=== PATIENT | male | born 1975 | race Asian ===

== ENCOUNTER 2025-05-17 09:41 | Outpatient (AMB) | payer OTHER, SELFPAY ==
--- NOTE | 2025-05-17 09:57 | A.OFFPC_ITS ---
Vital Signs 05/17/25 10:06 Height 5 ft 10 in Weight 186 lb 6 oz BMI 26.7 BP 130/70 Blood Pressure Location Lt brachial Position Sitting Respiration 16 Pulse 64 Pulse Source Pulse Oximeter Temp 98.2 F Temp Source Oral Pulse Oximetry (%) 100 Oxygen Delivery Method Room Air Intake Visit Reasons: TRANSLATOR // Requesting a PE Intake Note: patient is scheduled to establish care with pcp Exercise Science Instructor Required: No Allergies No Known Allergies Allergy (Verified 05/17/25 09:58) Medication List - Last Reconciled 05/17/25 by Ibrahima Gil MD No Known Home Meds Tobacco use date assessed: 05/17/25 Dental Screening Dental Screen Date: 05/17/25 Did you have a dental visit in the last 12 months?: Yes Did you have a dental problem in the last 6 months where you did not have access to dental care?: No Was dental information given to patient?: Patient has dentist HPI TRANSLATOR // Requesting a PE HPI Details New Patient? ?? Prior PCP:? [facility] Last office visit/CPE:? > 1 yr Acute issue(s):? Establish ?? PMHx:? Spherocytosis - Folate, SurgHx:? None FHx: Mom: PreDM. Brother: Polycystic Kidney Disease. Dad: Healthy. Aunt: Breast CA? SocHx:? Nonsmoker. EtOH: 1 drink per night or less. No Drugs HPI Comments History of Present Illness Details Documentation assistance for Ibrahima Gil MD, was provided by Kennedy Benjamin,? Mandolin Repair Person on 05/17/2025 at 10:13 AM EST. I, Dr. Gil, have read, observed, and verified documentation. ? PFSH Medical History (Updated 05/17/25 @ 10:26 by Kennedy Benjamin) Spherocytosis Social History Housing: House Patient Tobacco Use Status: Former Tobacco user e-Cigarette/Vaping Use: Never Used Second Hand Smoke Exposure: No service: No Current occupational status: employed Current occupation: Current occupational exposures/hazards: No Cognitive needs: No Hearing needs: No Vision needs: Yes Questionnaire PHQ-9 Over the last 2 weeks, how often have you been bothered by any of the following problems? 1. Little interest or pleasure in doing things: not at all 2. Feeling down, depressed, or hopeless: not at all 3. Trouble falling or staying asleep, or sleeping too much: not at all 4. Feeling tired or having little energy: not at all 5. Poor appetite or overeating: not at all 6. Feeling bad about yourself - or that you are a failure or have let yourself or your family down: not at all 7. Trouble concentrating on things, such as reading the newspaper or watching television: not at all 8. Moving or speaking so slowly that other people could have noticed. Or the opposite - being so fidgety or restless that you have been moving around a lot more than usual: not at all 9. Thoughts that you would be better off or of hurting yourself in some way: not at all Total score: 0 Depression Screening Interpretation: Negative Depression Screening Done: Yes 94994 - PHQ-9 Billing: Yes Source: Developed by Drs. Phu Michael, Maru Spencer, Charanjit Lubin and colleagues, with an educational loretta from [employer]. Thrive Questionnaire Date Thrive assessed: 05/17/25 I am a: Patient What is your living situation today?: I have a steady place to live Within the past 12 months, did the food you bought not last and you didn't have the money to get more?: Never true Within the past 12 months, did you worry whether your food would run out before you got money to buy more?: Never true Do you have trouble paying for medicines?: No Do you have trouble getting transportation to medical appointments?: No Do you have trouble paying your heating and electricity bill?: No Do you have trouble taking care of your child, family member or friend?: No Do you have trouble with day-to-day activities such as bathing, preparing meals, shopping, managing finances, etc.?: No Are you currently unemployed and looking for a job?: No Are you interested in more education?: No Please select the resources that you would like help with: None Currently or been in a relationship where the following occur: No concerns reported THRIVE Score: 0 AUDIT C Alcohol Use Questionnaire (AUDIT-C) 1. How often do you have a drink containing alcohol?: 2-4 times a month 2. How many drinks containing alcohol do you have on a typical day when you are drinking?: 1 or 2 3. How often do you have six or more drinks on one occasion?: Never Total Score: 2 Score Reviewed/Action Taken: Yes RUPALI-7 AMB Questionnaire RUPALI-7 Date RUPALI - 7 assessed: 05/17/25 Feeling nervous, anxious, or on edge: 0 = Not at all Not being able to stop or control worryin = Not at all Worrying too much about different things: 0 = Not at all Trouble relaxin = Not at all Being so restless that it is hard to sit still: 0 = Not at all Becoming easily annoyed or irritable: 0 = Not at all Feeling afraid as if something awful might happen: 0 = Not at all Total RUPALI-7 score (0-4 normal; 5-9 mild; 10-14 moderate; 15-21 severe): 0 Source: Developed by Drs. Phu Michael, Maru Spencer, Charanjit Lubin and colleagues, with an educational loretta from [employer]. RUPALI-7 Assessment Billing RUPALI-7 Assessment Tool: RUPALI-7 Assessment 43139 Review of Systems Const Denies chills, Denies fatigue, Denies fever(s), Denies headache(s) and Denies weakness Eyes Denies change in vision ENT Denies dizziness and Denies headache(s) Card Denies chest pain, Denies lightheadedness, Denies dyspnea and Denies other (Palpitations) Resp Denies cough, Denies dyspnea, Denies wheezing and Denies other ( shortness of breath) GI Denies abdominal pain, Denies melena, Denies hematochezia, Denies change in bowel habits, Denies dyspepsia and Denies nausea Denies hematuria and Denies dysuria Musc Denies numbness and Denies tingling Skin/Breast Denies rash, Denies unusual bruising and Denies wounds Neuro Denies dizziness, Denies headache(s), Denies numbness, Denies Sensory deficit (Neuro), Denies tingling, Denies paresthesias and Denies weakness Psych Denies anxiety and Denies depression Endo Denies fatigue Anthony/Lymph Denies easy bleeding and Denies easy bruising Aller/Immun Denies wheezing Physical exam (Primary Care) Vital Signs: Last Vital Signs Temp 98.2 F 05/17/25 10:06 Pulse 64 05/17/25 10:06 Resp 16 05/17/25 10:06 BP 130/70 05/17/25 10:06 Pulse Ox 100 05/17/25 10:06 Oxygen Delivery Method Room Air 05/17/25 10:06 BMI result Body Mass Index 26.7 Tobacco/Smoking Status: Tobacco use Status Tobacco use date assessed 05/17/25 05/17/25 10:09 Patient Tobacco Use Status Former Tobacco user 05/17/25 10:09 e-Cigarette/Vaping Use Never Used 05/17/25 10:09 PHQ-9: PHQ-9 Score PHQ-9: Total score 0 05/17/25 10:12 Depression Screening Interpretation: Negative Thrive Assessment: Date of Thrive Assessment Date Thrive assessed 05/17/25 05/17/25 10:09 Currently or been in a relationship where the following occur: No concerns reported Const General: no acute distress and well developed Nutritional Appearance: well nourished Orientation/consciousness: patient oriented x3 HENMT Head: Yes normocephalic and Yes atraumatic Ears: hearing grossly normal bilaterally and TM's normal bilaterally General nose exam: Normal external nose present and Normal nares present Mouth: Normal oral and palatal mucosa present and moist mucous membranes Teeth and gingiva: dentition normal Throat: Yes posterior oropharynx normal Eyes General: appearance normal, both eyes and all related structures Pupils: Equal, round and reactive pupils present EOM: EOMs intact bilaterally Neck Neck: Yes normal visual inspection, Yes no lymphadenopathy and Yes trachea midline Thyroid: Thyroid normal Carotids: no bruits Lymphatic: no lymphadenopathy noted Chest Chest palpation & inspection: normal inspection of the chest Resp Effort & Inspection: normal respiratory effort Auscultation: clear to auscultation bilaterally Cardio Rate: regular rate Rhythm: regular rhythm Heart sounds: S1 normal heart sound present, S2 normal heart sound present, no gallops, no murmurs and no rubs Bruits: no abdominal aortic bruits and no carotid bruits GI Palpation (GI): No Abdominal aortic bruit present, Soft to palpation, nontender, No hepatosplenomegaly present and No Rebound tenderness present Auscultation: normal bowel sounds General: Yes no CVA tenderness Back/Spine/Pelvis Back: no CVA tenderness Cervical Spine: cervical ROM normal and No Cervical spine tenderness Thoracic/Lumbar Spine: thoraco-lumbar ROM normal, No pain with thoraco-lumbar ROM, No thoracic spinal tenderness and No lumbar spinal tenderness Skin Lesions: no lesions Rashes: no rashes Trauma: no lacerations or abrasions Wounds: no wounds Nails: normal Neuro General: patient oriented x3 and gait normal Cranial nerves: Yes Equal, round and reactive pupils present Cognition (Neuro): normal cognition Gait exam (Neuro): Normal gait present Motor exam (neuro): 5/5 motor strength present throughout Sensory Exam: No Sensory deficit (Neuro) Deep tendon reflexes (DTR's): Right patellar reflex intensity grade: 2+ and Left patellar reflex intensity grade: 2+ Extrem General: Yes normal to inspection and No edema Psych Appearance: grossly normal Affect: normal affect Attitude: cooperative Thought process: Normal thought process present Coding Level of Care Code New Pt Level 3 (01923) New Pt Prev Care 40-64y(71363) Diagnoses Adult general medical exam Z00.00 Spherocytosis D58.0 Screening for colon cancer Z12.11 Screening for prostate cancer Z12.5 Hearing loss H91.90 Additional Codes RUPALI-7 Assessment Billing - RUPALI-7 Assessment Tool: RUPALI-7 Assessment 48505 ([id number]) PHQ-9 - 49654 - PHQ-9 Billing: Yes ([id number]) Assessment & Plan Assessment & Plan (1) Adult general medical exam: Code(s): Z00.00 - Encounter for general adult medical examination without abnormal findings Category: Medical Plan: 49-year-old?male?presents?for?complete?physical?exam Encouraged?healthy?diet?with?active?lifestyle?and?plenty?of?exercise (2) Spherocytosis: Code(s): D58.0 - Hereditary spherocytosis Category: Medical Plan: History?of?spherocytosis?and?treated?with?folate Checking?CBC If?any?concerns?will?also?check?abdominal?ultrasound?to?look?for?HSM (3) Screening for colon cancer: Code(s): Z12.11 - Encounter for screening for malignant neoplasm of colon Category: Medical Plan: Due?for?1st?screening?colonoscopy Referred (4) Screening for prostate cancer: Code(s): Z12.5 - Encounter for screening for malignant neoplasm of prostate Category: Medical Plan: Check?PSA (5) Hearing loss: Code(s): H91.90 - Unspecified hearing loss, unspecified ear Category: Medical Plan: Patient?notes?some?mild?subjective?hearing?loss Declines?evaluation?at?this?time He?will?let?me?know?if?he?has?any?other?concerns?or?notices?changes Orders: Orders Comprehensive [place]. Panel Fast Today Z00.00 - Encounter for general adult m edical examination without abnormal findings Lipid Panel Today Z00.00 - Encounter for general adult medical examination without abnormal findings Prostate Specific Antigen Scr Today Z12.5 - Encounter for screening for malignant neoplasm of prostate IRON PROFILE Today D58.0 - Hereditary spherocytosis Vitamin B12 and Folate Today D58.0 - Hereditary spherocytosis, E53.8 - Deficiency of other specified B group vitamins Microalbumin, Random (w Creat) Today I10 - Essential (primary) hypertension UA CC w/rflx Micro + Cult Today Z00.00 - Encounter for general adult medical examination without abnormal findings TSH reflex Free T4 Today Z00.00 - Encounter for general adult medical examination without abnormal findings Complete Blood Count Auto Diff Today Z00.00 - Encounter for general adult medical examination without abnormal findings Reticulocyte Count Today D58.0 - Hereditary spherocytosis Referrals Gastroenterology Referral Z12.11 - Encounter for screening for malignant neoplasm of colon
[2025-05-17 10:06] VITALS: BP 130/70; PULSE 64; RESP 16; TEMP 36.8; O2SAT 100; BMI 26.7
== END 2025-05-17 10:34 | disposition home or self-care (01) ==
LOC: HO.HMCFM 09:41
PROVIDERS: PCP Family Medicine; Visit Provider Family Medicine
DX: Z00.00 Encounter for general adult medical examination without abnormal findings (principal); D58.0 Hereditary spherocytosis; Z12.11 Encounter for screening for malignant neoplasm of colon; Z12.5 Encounter for screening for malignant neoplasm of prostate; H91.93 Unspecified hearing loss, bilateral

== ENCOUNTER → 2025-05-17 09:41 | Outpatient (BNVA) | payer OTHER, SELFPAY | PROVIDERS: PCP Family Medicine; Visit Provider Family Medicine | DX: Z00.00 Encounter for general adult medical examination without abnormal findings (principal); D58.0 Hereditary spherocytosis; H91.90 Unspecified hearing loss, unspecified ear; E53.8 Deficiency of other specified B group vitamins; I10 Essential (primary) hypertension | CPT/HCPCS: 96127 ==

== ENCOUNTER 2025-05-17 10:38 | Outpatient (REF) | payer OTHER, SELFPAY ==
[2025-05-17 13:47] LABS: MANUAL DIFF FLAG NO
[2025-05-17 13:52] LABS: Basophils Absolute Auto 0.1 X10*3/uL (0.0-0.2); Basophils Percent Auto 0.5 % (0-2); Eosinophils Absolute Auto 0.1 X10*3/uL (0.0-0.4); Eosinophils Percent Auto 1.1 % (0-4); Hematocrit 36.2 % (42.0-52.0); Hemoglobin 13.4 g/dl (14.0-18.0); Imm Gran Abs Auto 0.12 X10*3/uL (0.00-0.03); Imm Gran Pct Auto 1.1 % (0.0-0.4); Lymphocytes Absolute Auto 3.6 X10*3/uL (1.2-4.9); Lymphocytes Percent Auto 34.6 % (20-40); Mean Corpuscular Volume 97.3 fL (80.0-98.0); Mean Platelet Volume 11.7 fL (9.4-12.4); Monocytes Absolute Auto 0.8 X10*3/uL (0.1-1.2); Monocytes Percent Auto 7.8 % (2-11); Neutrophils Absolute Auto 5.7 x10*3/uL (2.0-8.3); Neutrophils Percent Auto 54.9 % (45-73); Platelet Count 123 X10*3/uL (160-400); Red Blood Count 3.72 X10*6/uL (4.60-5.80); Red Cell Distribution Width 17.2 % (11.0-16.0); White Blood Count 10.5 X10*3/uL (4.8-10.8)
[2025-05-17 14:00] LABS: Color Urine Dark Yellow; Glucose Urine UA Negative (Negative); Leukocyte Esterase Urine Negative (Negative); Nitrite Urine Negative (Negative); Specific Gravity - Urine 1.015 (1.005-1.025); Urine Blood Negative (Negative); Urine Ketones Negative (Negative); Urine Protein Negative (Neg-Trace)
[2025-05-17 14:01] LABS: Appearance Urine Clear
[2025-05-17 14:04] LABS: NRBC Pct Auto 1.3 /100WBC (0.0-0.2); RET ABN SCTR 1
[2025-05-17 14:08] LABS: Immature Retic Fraction 18.7 % (2.3-13.4); Reticulocyte Percent 13.3 % (0.5-1.8); Reticulocytes Absolute 0.452 X10*6/uL (0.026-0.095)
[2025-05-17 14:17] LABS: Alkaline Phosphatase 67 U/L (39-117); Anion Gap 11 (12-20); Aspartate Amino Transferase 40 U/L (5-37); Bilirubin Total 4.1 mg/dL (0.0-1.0); Blood Urea Nitrogen 11 mg/dL (9-16); Calcium 9.2 mg/dL (8.4-10.2); Carbon Dioxide 25 mmol/L (22-29); Chloride 107 mmol/L (96-108); Cholesterol 105 mg/dL (<200); Estimated Glomerular Filt Rate > 60; Glucose Fasting 94 mg/dL (60-99); HDL Cholesterol 33 mg/dL (>40); Iron 211 mcg/dL (45-160); LDL Cholesterol Calculated 49 mg/dL (<100); Percent Iron Saturation 89 % (15-50); Sodium 139 mmol/L (135-145); Total Iron Binding Capacity 236 mcg/dL (228-428); Triglycerides 118 mg/dL (<150); Unsaturated Iron Binding < 25 ug/dL
[2025-05-17 14:19] LABS: Creatinine Urine 103.25 mg/dL; Microalbum/Creatinine Ratio Ur 5.8 ug/mg cr (<30)
[2025-05-17 14:27] LABS: Alanine Aminotransferase 54 U/L (0-40)
[2025-05-17 14:31] LABS: TSH reflex Free T4 1.23 uIU/mL (0.32-4.0)
[2025-05-17 14:43] LABS: Folate 13.9 ng/mL (> or = 4.0); Prostate Specific Antigen Scr 0.44 ng/mL (<0.05-4.0); Vitamin B12 509 pg/mL (200-900)
== END 2025-05-17 10:39 | disposition home or self-care (01) ==
LOC: HO.WFDLDS 10:38
PROVIDERS: Visit Provider Family Medicine
DX: Z00.00 Encounter for general adult medical examination without abnormal findings (principal); E53.8 Deficiency of other specified B group vitamins; D58.0 Hereditary spherocytosis; Z12.5 Encounter for screening for malignant neoplasm of prostate; I10 Essential (primary) hypertension
CPT/HCPCS: 36415; 80053; 80061; 81003; 82043; 82570; 82607; 82746; 83540; 84153; 84443; 85025; 85045

== ENCOUNTER 2025-06-14 15:43 | Outpatient (AMB) | payer OTHER, SELFPAY ==
--- NOTE | 2025-06-14 15:39 | MHC.PC.OV ---
Intake Visit Reasons: f/u CPE-labs via telemed Intake Note: Frandy presents by phone today for a lab review/CPE. Allergies No Known Allergies Allergy (Verified 06/14/25 15:40) Tobacco use date assessed: 06/14/25 Dental Screening Dental Screen Date: 06/14/25 Did you have a dental visit in the last 12 months?: Yes Did you have a dental problem in the last 6 months where you did not have access to dental care?: No Was dental information given to patient?: Patient has dentist HPI f/u CPE-labs via telemed HPI Details 49 y/o male presents to f/u labs via telemed. Labs drawn 05/17/25. Reviewed labs with pt. Elevated liver enzymes - AST 40, ALT 54. Triglycerides 118. TC 105. LDL 49. HDL low at 33. PFSH Medical History (Updated 06/14/25 @ 16:06 by Kennedy Benjamin) Spherocytosis Social History (Updated 06/14/25 @ 15:41 by Rosalinda Hogue MA) Housing: House Alcohol intake: current Patient Tobacco Use Status: Former Tobacco user e-Cigarette/Vaping Use: Never Used Second Hand Smoke Exposure: No Use of substances other than those prescribed or required for medical reasons: No service: No Current occupational status: employed Current occupation: professor Current occupational exposures/hazards: No Cognitive needs: No Hearing needs: No Vision needs: Yes Questionnaire Thrive Questionnaire Date Thrive assessed: 05/17/25 I am a: Patient What is your living situation today?: I have a steady place to live Within the past 12 months, did the food you bought not last and you didn't have the money to get more?: Never true Within the past 12 months, did you worry whether your food would run out before you got money to buy more?: Never true Do you have trouble paying for medicines?: No Do you have trouble getting transportation to medical appointments?: No Do you have trouble paying your heating and electricity bill?: No Do you have trouble taking care of your child, family member or friend?: No Do you have trouble with day-to-day activities such as bathing, preparing meals, shopping, managing finances, etc.?: No Are you currently unemployed and looking for a job?: No Are you interested in more education?: No Please select the resources that you would like help with: None Currently or been in a relationship where the following occur: No concerns reported THRIVE Score: 0 RUPALI-7 AMB Questionnaire RUPALI-7 Date RUPALI - 7 assessed: 05/17/25 Source: Developed by Drs. Phu Michael, Maru Spencer, Charanjit Lubin and colleagues, with an educational loretta from [employer]. Review of Systems Const Denies chills, Denies fatigue, Denies fever(s), Denies headache(s) and Denies weakness ENT Denies dizziness and Denies headache(s) Card Denies dyspnea Resp Denies cough, Denies dyspnea, Denies wheezing and Denies other (shortness of breath) Musc Denies numbness and Denies tingling Neuro Denies dizziness, Denies headache(s), Denies numbness, Denies tingling and Denies weakness Psych Denies anxiety and Denies depression Endo Denies fatigue Aller/Immun Denies wheezing Physical exam (Primary Care) Tobacco/Smoking Status: Tobacco use Status Tobacco use date assessed 06/14/25 06/14/25 15:42 Patient Tobacco Use Status Former Tobacco user 06/14/25 15:42 e-Cigarette/Vaping Use Never Used 06/14/25 15:42 Thrive Assessment: Date of Thrive Assessment Date Thrive assessed 05/17/25 06/14/25 15:42 Currently or been in a relationship where the following occur: No concerns reported Telehealth Telehealth Telehealth Platform: Telephone Location of provider rendering services: practice address Location of patient: address on file Patient Identification confirmed using: Name, : Yes Telehealth method: voice only Patient verbally consented to treatment: Yes Patient verbally consented to billing insurance company: Yes Patient informed of any privacy concerns related to visit: Yes Minutes spent on Phone/Video with Pt.: 3 Coding Level of Care Code Tele Est Pt Level 2 (16126) Diagnoses Elevated liver enzymes R74.8 Spherocytosis D58.0 Assessment & Plan Assessment & Plan (1) Elevated liver enzymes: Code(s): R74.8 - Abnormal levels of other serum enzymes Category: Medical Plan: Elevated liver enzymes. Will repeat these with next blood draw (2) Spherocytosis: Code(s): D58.0 - Hereditary spherocytosis Category: Medical Plan: Patient notes a histor of spherocytosis and CBC shows mild anemia with increased reticular count and high MCHC, consistent with this. No recent workup Will check ultrasound abdomen Referring patient to Hematology-Oncology Orders: Orders US abdomen complete Today D58.0 - Hereditary spherocytosis, R74.8 - Abnormal levels of other serum enzymes Comprehensive Met. Panel Today R74.8 - Abnormal levels of other serum enzymes Referrals Hematology & Oncology Referral D58.0 - Hereditary spherocytosis
== END 2025-06-14 17:00 | disposition home or self-care (01) ==
LOC: HO.HMCFM 15:43
PROVIDERS: PCP Family Medicine; Visit Provider Family Medicine
DX: R74.8 Abnormal levels of other serum enzymes (principal); D58.0 Hereditary spherocytosis

== ENCOUNTER → 2025-07-06 13:03 | Outpatient (BNV) | payer OTHER, SELFPAY | PROVIDERS: PCP Family Medicine; Referring Provider Family Medicine; Visit Provider Internal Medicine | DX: D58.0 Hereditary spherocytosis (principal); E83.10 Disorder of iron metabolism, unspecified | CPT/HCPCS: 99204; G2211 ==

== ENCOUNTER 2025-07-30 10:10 | Outpatient (REF) | payer OTHER, SELFPAY ==
--- NOTE | ~2025-07-30 | US_ITS ---
EXAMINATION: US ABDOMEN HISTORY: R74.8 - Abnormal levels of other serum enzymes TECHNIQUE: Real-time grayscale ultrasound imaging of the abdomen was performed and images were reviewed. COMPARISON: There are no prior studies available for comparison. FINDINGS: Liver: The right lobe of the liver measures 15.3 cm in size. The left lobe of the liver measures 8.1 cm in size. The liver demonstrates normal homogeneous echotexture. No focal mass or intrahepatic biliary ductal dilatation is identified. There is normal hepatopedal flow in the portal vein. Gallbladder and biliary tree: Multiple shadowing calculi are noted in the gallbladder. There is no wall thickening or pericholecystic fluid. There is no sonographic Bradley sign. The common bile duct is normal in caliber measuring 3 mm. Kidneys: The right kidney measures 11.0 cm in length. The left kidney measures 10.5 cm in length. The kidneys are unremarkable, without evidence of masses, hydronephrosis, or calculi. Pancreas: The pancreas is obscured by bowel gas. Spleen: The spleen is enlarged, measuring 20.4 cm in length. Multiple punctate calcifications is seen in the spleen. Abdominal aorta and inferior vena cava: The visualized portions of the abdominal aorta and inferior vena cava are normal in caliber. There is no free fluid in the abdomen. US/US abdomen complete IMPRESSION: 1. Marked splenomegaly. 2. Cholelithiasis. 3. The pancreas is obscured by bowel gas. Electronically signed by: Phu Beatty MD 07/30/2025 11:14 AM EDT
== END 2025-07-30 10:11 | disposition home or self-care (01) ==
LOC: HO.HMGCX 10:10
PROVIDERS: PCP Family Medicine; Visit Provider Family Medicine
DX: R74.8 Abnormal levels of other serum enzymes (principal); D58.0 Hereditary spherocytosis
CPT/HCPCS: 76700

== ENCOUNTER → 2025-07-30 10:15 | Outpatient (BNV) | payer OTHER, SELFPAY | PROVIDERS: PCP Family Medicine; Visit Provider Radiology Diagnostic Radiology | DX: R74.8 Abnormal levels of other serum enzymes (principal); K80.20 Calculus of gallbladder without cholecystitis without obstruction | CPT/HCPCS: 76700 ==

== ENCOUNTER 2025-08-02 08:45 | Outpatient (REF) | payer OTHER, SELFPAY ==
--- NOTE | ~2025-08-02 | MR_ITS ---
EXAMINATION: MR ABDOMEN WITHOUT THEN WITH IV CONTRAST HISTORY: HIGH FERRITIN EVAL FOR IRON DEPOSITION IN LIVER COMPARISON: Correlation is made with an abdominal ultrasound dated 07/30/2025 TECHNIQUE: Axial in and out of phase T1-weighted gradient echo, axial diffusion weighted, and axial and coronal HASTE T2 with fat saturation images were obtained through the abdomen. Subsequently, fat suppressed axial and coronal T1-weighted images were obtained after the intravenous administration of 8.5 mL Gadavist. FINDINGS: Liver: The liver demonstrates diffusely decreased signal intensity on all sequences with an increase in signal intensity on opposed phase imaging. These findings are consistent with iron overload. Multiple cysts are noted in the liver, the largest of which measures 1.6 cm in segment VII. There is no enhancing liver mass. The hepatic and portal veins are patent. There is no intrahepatic biliary dilatation. Gallbladder/biliary tree: Multiple calculi are noted in the gallbladder. The common bile duct is normal in caliber. No intraluminal filling defects are identified to suggest choledocholithiasis. Spleen: The spleen is markedly enlarged measuring 19.6 x 9.1 x 15.1 cm. The spleen demonstrates markedly decreased signal intensity on all sequences, consistent with iron overload. No focal splenic lesion is identified. Pancreas: The pancreas is unremarkable. There is no evidence of iron overload in the pancreas. There is no enhancing pancreatic mass. The pancreatic duct is normal in caliber. Adrenals: The adrenal glands are unremarkable. Kidneys: There are left renal cysts measuring up to 10 mm in size. The kidneys are otherwise unremarkable in appearance. No evidence of iron overload in the kidneys. There is no hydronephrosis. Lymph nodes: There is no retroperitoneal lymphadenopathy in the upper abdomen. Fluid: There is no ascites in the upper abdomen. Visualized bowel: The visualized small and large bowel loops are unremarkable in appearance. Visualized bones: The visualized bones demonstrate diffusely decreased marrow signal intensity, consistent with iron overload. MR/MR abdomen wo/w con IMPRESSION: 1. Splenomegaly. 2. Findings consistent with iron overload in the reticuloendothelial system of the liver, spleen, and bone marrow, without evidence of iron overload in the pancreas. These findings would favor transfusional hemosiderosis or hemachromatosis, although the pattern can be variable. Clinical correlation is recommended. 3. Cholelithiasis. Electronically signed by: Phu Beatty MD 08/03/2025 07:27 AM EDT RP
== END 2025-08-02 08:46 | disposition home or self-care (01) ==
LOC: HO.MRI 08:45
PROVIDERS: PCP Family Medicine; Visit Provider Internal Medicine
DX: R74.8 Abnormal levels of other serum enzymes (principal)
CPT/HCPCS: 74183; A9585

== ENCOUNTER → 2025-08-02 15:36 | Outpatient (BNV) | payer OTHER, SELFPAY | PROVIDERS: PCP Family Medicine; Visit Provider Radiology Diagnostic Radiology | DX: R16.1 Splenomegaly, not elsewhere classified (principal); K80.20 Calculus of gallbladder without cholecystitis without obstruction | CPT/HCPCS: 74183 ==

== ENCOUNTER 2025-08-09 15:16 | Outpatient (AMB) | payer OTHER, SELFPAY ==
--- NOTE | 2025-08-09 15:21 | MHC.PC.OV ---
Vital Signs 08/09/25 15:22 Height 5 ft 10 in Weight 182 lb 6 oz BMI 26.2 BP 108/70 Blood Pressure Location Rt brachial Position Sitting Pulse 78 Pulse Source Pulse Oximeter Pulse Oximetry (%) 96 Oxygen Delivery Method Room Air Intake Visit Reasons: Follow-up elevated liver enzymes Allergies No Known Allergies Allergy (Verified 08/09/25 15:25) Tobacco use date assessed: 08/09/25 Dental Screening Dental Screen Date: 08/09/25 Did you have a dental visit in the last 12 months?: Yes Did you have a dental problem in the last 6 months where you did not have access to dental care?: No Was dental information given to patient?: Patient has dentist HPI Follow-up elevated liver enzymes HPI Details 50 y/o male presents to review liver enzymes, abd. ultrasound. Pt had noted hx spherocystosis.CBC d shown mild anemia with increased reticular count d high MCHC, consistent with this. Had referred pt. to Heme Onc. Labs drawn 07/06/25. Reviewed labs with pt. AST 47. ALT 136. Abd. MRI 08/02/25 shows: 1. Splenomegaly. 2. Findings consistent with iron overload in the reticuloendothelial system of the liver, spleen, and bone marrow, without evidence of iron overload in the pancreas. These findings would favor transfusional hemosiderosis or hemachromatosis, although the pattern can be variable. Clinical correlation is recommended. 3. Cholelithiasis. Had been following up with [facility]. [facility] Medical History Spherocytosis Social History Household Members: Spouse Housing: House Alcohol intake: current Patient Tobacco Use Status: Former Tobacco user Tobacco use type: Cigarette e-Cigarette/Vaping Use: Never Used Second Hand Smoke Exposure: No service: No Current occupational status: employed Current occupation: Current occupational exposures/hazards: No Cognitive needs: No Hearing needs: No Vision needs: Yes Questionnaire PHQ-9 Over the last 2 weeks, how often have you been bothered by any of the following problems? 1. Little interest or pleasure in doing things: not at all 2. Feeling down, depressed, or hopeless: not at all 3. Trouble falling or staying asleep, or sleeping too much: not at all 4. Feeling tired or having little energy: not at all 5. Poor appetite or overeating: not at all 6. Feeling bad about yourself - or that you are a failure or have let yourself or your family down: not at all 7. Trouble concentrating on things, such as reading the newspaper or watching television: not at all 8. Moving or speaking so slowly that other people could have noticed. Or the opposite - being so fidgety or restless that you have been moving around a lot more than usual: not at all 9. Thoughts that you would be better off or of hurting yourself in some way: not at all Total score: 0 Depression Screening Interpretation: Negative Depression Screening Done: Yes Source: Developed by Drs. Phu Michael, Maru Spencer, Charanjit Lubin and colleagues, with an educational loretta from [employer]. Thrive Questionnaire Date Thrive assessed: 05/17/25 I am a: Patient What is your living situation today?: I have a steady place to live Within the past 12 months, did the food you bought not last and you didn't have the money to get more?: Never true Within the past 12 months, did you worry whether your food would run out before you got money to buy more?: Never true Do you have trouble paying for medicines?: No Do you have trouble getting transportation to medical appointments?: No Do you have trouble paying your heating and electricity bill?: No Do you have trouble taking care of your child, family member or friend?: No Do you have trouble with day-to-day activities such as bathing, preparing meals, shopping, managing finances, etc.?: No Are you currently unemployed and looking for a job?: No Are you interested in more education?: No Please select the resources that you would like help with: None Currently or been in a relationship where the following occur: No concerns reported THRIVE Score: 0 AUDIT C Alcohol Use Questionnaire (AUDIT-C) 1. How often do you have a drink containing alcohol?: 2-4 times a month 2. How many drinks containing alcohol do you have on a typical day when you are drinking?: 1 or 2 3. How often do you have six or more drinks on one occasion?: Never Total Score: 2 RUPALI-7 AMB Questionnaire RUPALI-7 Date RUPALI - 7 assessed: 05/17/25 Feeling nervous, anxious, or on edge: 0 = Not at all Not being able to stop or control worryin = Not at all Worrying too much about different things: 0 = Not at all Trouble relaxin = Not at all Being so restless that it is hard to sit still: 0 = Not at all Becoming easily annoyed or irritable: 0 = Not at all Feeling afraid as if something awful might happen: 0 = Not at all Total RUPALI-7 score (0-4 normal; 5-9 mild; 10-14 moderate; 15-21 severe): 0 Source: Developed by Drs. Phu Michael, Maru Spencer, Charanjit Lubin and colleagues, with an educational loretta from [employer]. Review of Systems Const Denies chills, Denies fatigue, Denies fever(s), Denies headache(s) and Denies weakness ENT Denies dizziness and Denies headache(s) Card Denies dyspnea Resp Denies cough, Denies dyspnea, Denies wheezing and Denies other (shortness of breath) Musc Denies numbness and Denies tingling Neuro Denies dizziness, Denies headache(s), Denies numbness, Denies tingling and Denies weakness Psych Denies anxiety and Denies depression Endo Denies fatigue Aller/Immun Denies wheezing Physical exam (Primary Care) Vital Signs: Last Vital Signs Pulse 78 08/09/25 15:22 BP 108/70 08/09/25 15:22 Pulse Ox 96 08/09/25 15:22 Oxygen Delivery Method Room Air 08/09/25 15:22 BMI result Body Mass Index 26.2 Tobacco/Smoking Status: Tobacco use Status Tobacco use date assessed 08/09/25 08/09/25 15:26 Patient Tobacco Use Status Former Tobacco user 08/09/25 15:26 Tobacco use type Cigarette 08/09/25 15:26 e-Cigarette/Vaping Use Never Used 08/09/25 15:26 PHQ-9: PHQ-9 Score PHQ-9: Total score 0 08/09/25 15:56 Depression Screening Interpretation: Negative Thrive Assessment: Date of Thrive Assessment Date Thrive assessed 05/17/25 08/09/25 15:26 Currently or been in a relationship where the following occur: No concerns reported Const General: well developed; No acute distress Nutritional Appearance: well nourished Orientation/consciousness: patient oriented x3 HENMT Head: Yes normocephalic and Yes atraumatic Eyes General: appearance normal, both eyes and all related structures Pupils: Equal, round and reactive pupils present EOM: EOMs intact bilaterally Resp Effort & Inspection: normal respiratory effort Auscultation: clear to auscultation bilaterally Cardio Rate: regular rate Rhythm: regular rhythm Heart sounds: S1 normal heart sound present, S2 normal heart sound present, no gallops, no murmurs and no rubs Neuro General: patient oriented x3 and gait normal Cranial nerves: Yes Equal, round and reactive pupils present Psych Affect: normal affect Coding Level of Care Code Est Pt Level 4 (58369) Diagnoses Elevated liver enzymes R74.8 Spherocytosis D58.0 Immunization counseling Z71.85 Assessment & Plan Assessment & Plan (1) Elevated liver enzymes: Code(s): R74.8 - Abnormal levels of other serum enzymes Category: Medical Plan: Elevated liver enzymes likely secondary to iron overload - see below Also has appointment gastroenterology Follow-up with GI (2) Spherocytosis: Code(s): D58.0 - Hereditary spherocytosis Category: Medical Plan: 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 Now on deferasirox iron chelation Followed by Hematology-Oncology (3) Immunization counseling: Code(s): Z71.85 - Encounter for immunization safety counseling Category: Medical Plan: Recommended flu shot and COVID shot Orders: Orders Free T4 (Free Thyroxine) Today E03.9 - Hypothyroidism, unspecified Thyroid Stimulating Hormone Today E03.9 - Hypothyroidism, unspecified Triiodothyronine T3 Total Today E03.9 - Hypothyroidism, unspecified Basic Metabolic Panel Today Z00.00 - Encounter for general adult medical examination without abnormal findings
[2025-08-09 15:22] VITALS: BP 108/70; PULSE 78; O2SAT 96; BMI 26.2
== END 2025-08-09 16:12 | disposition home or self-care (01) ==
LOC: HO.HMCFM 15:17
PROVIDERS: PCP Family Medicine; Visit Provider Family Medicine
DX: R74.8 Abnormal levels of other serum enzymes (principal); D58.0 Hereditary spherocytosis; Z71.85 Encounter for immunization safety counseling

== ENCOUNTER 2025-09-10 09:21 | Outpatient (AMB) | payer OTHER, SELFPAY ==
[2025-09-10 09:22] VITALS: BP 120/64; PULSE 63; BMI 26.6
--- NOTE | 2025-09-10 09:22 | MHC.OFFVIS ---
Vital Signs 09/10/25 09:22 Height 5 ft 10 in Weight 185 lb 10.067 oz BMI 26.6 BP 120/64 Blood Pressure Location Lt brachial Position Sitting Pulse 63 Intake Visit Reasons: colo screening (1st colo) Intake Note: New pt for initial colo screening. CC: reports normal BM. Denies diarrhea, constipation. Client Development Director Required: No Accompanied by: Self / Same As Patient Allergies No Known Allergies Allergy (Verified 09/10/25 09:27) HPI HPI colo screening (1st colo): Details: 50 year old? male with last medical history of spherocytosis, hypothyroidism is here today for pre colonoscopy screening.? Patient was sent to us by his PCP.? This is his first colonoscopy screening.? Patient denies any gastrointestinal symptoms in the past or at present.? Denies any personal or family history of gastrointestinal disease, colon polyps, or CRC.? Patient never had anesthesia in the past.? Negative for history of sleep apnea.? Denies any history of cardiac, renal, pulmonary, or hepatic disease.?? No history of infectious? diseases like hepatitis A, B, C, HIV or tuberculosis.? Patient is not on any anticoagulation. Patient was diagnosed with in spherocytosis in his 30s had transfusion in 2010 no blood transfusions since. Patient is seeing Dr. Hannah. Liver enzymes normalized. Patient has been taking folic acid daily. High ferritin and high iron. HFE gene analysis was negative for Hereditary hemochromatosis. PFSH Medical History (Updated 09/10/25 @ 10:02 by Sharlene Kinsey [facility]) Hyperthyroidism Spherocytosis Social History Household Members: Spouse Housing: House Alcohol intake: current Patient Tobacco Use Status: Former Tobacco user Tobacco use type: Cigarette e-Cigarette/Vaping Use: Never Used Second Hand Smoke Exposure: No service: No Current occupational status: employed Current occupation: professor Current occupational exposures/hazards: No Cognitive needs: No Hearing needs: No Vision needs: Yes Review of Systems Const Denies weight gain and Denies weight loss ENT Reports no additional complaints, Denies dysphagia and Denies odynophagia Card Reports no additional complaints Resp Reports no additional complaints GI Denies abdominal pain, Denies belching, Denies melena, Denies bloating, Denies change in bowel habits, Denies dysphagia, Denies excessive flatus, Denies dyspepsia, Denies heartburn, Denies diarrhea, Denies loose stools, Denies nausea, Denies odynophagia and Denies vomiting Reports no additional complaints Musc Reports no additional complaints Neuro Reports no additional complaints Psych Reports no additional complaints Endo Reports no additional complaints Physical Exam Vital Signs: Last Vital Signs Pulse 63 09/10/25 09:22 BP 120/64 09/10/25 09:22 BMI result Body Mass Index 26.6 Const General: healthy appearing, no acute distress and well developed Nutritional Appearance: well nourished Orientation/consciousness: patient oriented x3 Resp Effort & Inspection: normal respiratory effort, able to speak in complete sentences, no tracheal deviation and symmetric chest movement Auscultation: clear to auscultation bilaterally Cardio Rate: regular rate GI Inspection: Yes normal to inspection and No distended Palpation (GI): Soft to palpation, not firm, nontender and No hepatosplenomegaly present Auscultation: normal bowel sounds General: Yes no CVA tenderness Back/Spine/Pelvis Back: no CVA tenderness Skin General skin exam: elasticity normal, turgor normal and dry skin Neuro General: patient oriented x3 Psych Appearance: grossly normal Mental Status: mental status grossly normal Assessment & Plan Assessment & Plan (1) Screening for colon cancer: Code(s): Z12.11 - Encounter for screening for malignant neoplasm of colon Category: Medical Plan Patient denies any GI, cardiac or respiratory symptoms.? Patient never had anesthesia in the past.? Denies any history of sleep apnea.? No history infectious diseases in the past or present.? Not on any anticoagulation therapy.? No family or personal history of colon cancer or polyps.? Patient denies melena, hematochezia, unintentional weight loss or ribbon like stools.? Discussed at length the pre-procedure,? prep, diet & medications as well as what to expect prior, during and after the procedure.?? Stressed the importance of good bowel prep.? Recommended the use of Vaseline or Calmoseptine OTC & baby wipes with bowel movements to promote comfort.? ?Patient verbalizes understanding and agrees to plan of care.? He was given the opportunity to ask questions and all questions answered.? We will see him after the procedure.? Orders: Referrals GI Procedure Notification Z12.11 - Encounter for screening for malignant neoplasm of colon Medications: New bisacodyl (Dulcolax (bisacodyl)) take 4 tabs at noon the day before your colonoscopy 20 mg (4 x 5 mg) PO ONCE 4 tabs 0RF constipation 1 day Z12.11 - Encounter for screening for malignant neoplasm of colon polyethylene glycol 3350 (Miralax) As directed by gastroenterology department at [facility] 238 grams PO ONCE 238 grams 0RF Z12.11 - Encounter for screening for malignant neoplasm of colon Coding Level of Care Code New Pt Level 3 (90278) Diagnoses Screening for colon cancer Z12.11 Time Spent (min) 40 Comment 30 minutes spent with patient and additional 10 minutes spent reviewing his records
== END 2025-09-10 09:49 | disposition home or self-care (01) ==
LOC: HO.HGI 09:21
PROVIDERS: PCP Family Medicine; Visit Provider Nurse Practitioner Family
DX: Z01.818 Encounter for other preprocedural examination (principal); Z12.11 Encounter for screening for malignant neoplasm of colon
CPT/HCPCS: 99203

== ENCOUNTER → 2025-11-11 11:01 | Day surgery (SDC) | payer OTHER, SELFPAY ==
--- NOTE | 2025-11-08 14:12 | HO.ANESPROP2 ---
Documented by User: Mary Stacy NP 11/08/25 14:15 HPI - Anesthesia Eval Consult details Narrative: 50 yr old female for colonoscopy Hereditary spherocytosis, iron overload state: follows [facility]: not from 10/29/25 states Blood work shows worsening of ferritin level as well as liver enzymes. A new prescription for Exjade 1500 mg p.o. daily . PMFSH Active Problems Active Problems: All Active Problems Immunization counseling (Acute) Elevated liver enzymes (Acute) Hearing loss (Acute) Spherocytosis (Chronic) Screening for prostate cancer (Acute) Screening for colon cancer (Acute) Adult general medical exam (Acute) Past Medical History Medical History Hyperthyroidism Spherocytosis Surgical History Surgical History No pertinent past surgical history Social History Social History Household Members: Spouse Housing: House Are you a primary live in caregiver to a significant other at home: No Do you presently have visiting nurse or other home services: No Alcohol intake: current Patient Tobacco Use Status: Former Tobacco user Tobacco use type: Cigarette e-Cigarette/Vaping Use: Never Used Second Hand Smoke Exposure: No Have you been hit, kicked, punched, or otherwise hurt by someone within the past year? If so, by whom?: No Are you DNR?: No Advance Directives: No Advance Directives Information Provided: Yes service: No Current occupational status: employed Current occupation: professor Current occupational exposures/hazards: No Cognitive needs: No Hearing needs: No Vision needs: Yes Meds Allergies Allergy/AdvReac Type Severity Reaction Status Date / Time No Known Allergies Allergy Verified 11/11/25 11:48 Home Medications ?Medication ?Instructions ?Recorded ?Confirmed ?Last Taken ?Type escitalopram oxalate 20 mg tablet 20 mg PO DAILY 06/01/25 11/09/25 Unknown History folic acid 1 mg tablet 1 mg PO DAILY 06/01/25 11/09/25 Unknown History cholecalciferol (vitamin D3) 100 100 mcg PO DAILY 07/06/25 11/11/25 Unknown History mcg (4,000 unit) capsule omega 7-ypg-fax-fish oil 60 mg-90 1 cap PO DAILY 07/06/25 11/11/25 11/04/25 History mg-500 mg capsule (Fish Oil) Exam Pertinent Lab Results Pertinent Lab Results: Laboratory Tests 10/29/25 09:22 WBC 10.0 RBC 3.98 L Hgb 14.3 Hct 39.7 L Plt Count 129 L Sodium 139 Potassium 4.9 BUN 13 Documented by User: Mirian Nolen MD 11/11/25 13:03 PMFSH Past Medical History Medical History Hyperthyroidism Spherocytosis Family History Family history of problems with anesthesia: No Surgical History Surgical History No pertinent past surgical history History of Problems with Anesthesia: No Social History Social History Household Members: Spouse Housing: House Are you a primary live in caregiver to a significant other at home: No Do you presently have visiting nurse or other home services: No Alcohol intake: current Patient Tobacco Use Status: Former Tobacco user Tobacco use type: Cigarette e-Cigarette/Vaping Use: Never Used Second Hand Smoke Exposure: No Have you been hit, kicked, punched, or otherwise hurt by someone within the past year? If so, by whom?: No Are you DNR?: No Advance Directives: No Advance Directives Information Provided: Yes service: No Current occupational status: employed Current occupation: professor Current occupational exposures/hazards: No Cognitive needs: No Hearing needs: No Vision needs: Yes Meds Allergies Allergy/AdvReac Type Severity Reaction Status Date / Time No Known Allergies Allergy Verified 11/11/25 11:48 Home Medications ?Medication ?Instructions ?Recorded ?Confirmed ?Last Taken ?Type escitalopram oxalate 20 mg tablet 20 mg PO DAILY 06/01/25 11/09/25 Unknown History folic acid 1 mg tablet 1 mg PO DAILY 06/01/25 11/09/25 Unknown History cholecalciferol (vitamin D3) 100 100 mcg PO DAILY 07/06/25 11/11/25 Unknown History mcg (4,000 unit) capsule omega 6-qzq-dob-fish oil 60 mg-90 1 cap PO DAILY 07/06/25 11/11/25 11/04/25 History mg-500 mg capsule (Fish Oil) Exam Airway Mallampati Class: II TM Dist: >3cm Neck ROM: Full Heart: rrr Lungs: cta Assessment and Plan Assessment Anesthesia Assessment: Anesthesia Plan Discussed and Chart Reviewed Final Anesthetic Review Family History of Problems with Anesthesia: No History of Problems with Anesthesia: No NPO: Yes ASA Class: II Final Preanesthetic Review: No Changes in Pt Med Stat, Meds/Allgs Chart Reviewed, Consent Obtained/Reviewed and Anes Risks/Benef Reviewed Patient Risk: Low Procedure Risk: Low Anesthetic Plan Anesthetic Plan: MAC: and Agree w/ Assess. and Plan Disposition: Standard PACU
[2025-11-09 13:29] VITALS: BMI 26.7
[2025-11-11] VITALS (7 sets, daily range): BP systolic 102–125; BP diastolic 71–85; PULSE 59–77; RESP 12–18; TEMP 36.1–36.8; O2SAT 97–100; BMI 26.4
--- NOTE | 2025-11-11 12:11 | MHC.SHP ---
Pre-Procedural Eval Section A - 24 Hr Update-Section A only Date of Service: 11/11/25 Section B - Complete if H&P > 30 days Chief Complaint: screening Details of Present Illness: Hyperthyroidism Spherocytosis Present Medications: see Short Stay Collaborative assessment Allergies: Allergies Allergy/AdvReac Type Severity Reaction Status Date / Time No Known Allergies Allergy Verified 11/11/25 11:48 Review of Systems Review of Systems Comment: Ten point ROS negative Exam Exam Comment: Gen appear: No acute distress HEENT: no icterus Chest: No overt resp distress Abd: soft, nontender, nondistended Psych: Stable affect, answering questions appropriately Neuro: A/Ox3 noted to move all extremities spontaneously Ext: no peripheral edema Plan Diagnosis/Plan: Unchanged I have reviewed the history and physical and performed a pertinent physical examination on my patient. No changes have occurred unless specified. Time Spent With Patient Time: Total time managing care of this patient today ____ minutes.
--- NOTE | 2025-11-11 12:57 | P.OPN-COLO_ITS ---
Colonoscopy Operative Note Operative Note Date of Service: 11/11/25 Narrative: Procedure: Colonoscopy Indication: Screening Endoscopist: Navya Velazquez MD Anesthesia Provider: Scott Funez CRNA Anesthesia type: MAC Instrument: Olympus [id number]-[id number] Consent: Indication, risks vs benefits, and alternatives were discussed with the patient who gave written informed consent to proceed. EKG, pulse, pulse oximetry and blood pressure were monitored throughout the procedure. Please see anesthesia flowsheet. Procedure: The patient was brought to the procedure room and placed in the left lateral decubitus position. IV medications were administered by the anesthesia provider in attendance. A digital rectal exam was performed which was normal. A distal attachment cap was affixed to the tip of the colonoscope which was then inserted through the anus and advanced through the colon to the cecum at 75 cm,and terminal ileum. Appendiceal orifice and ileocecal valve were identified. Mucosa was carefully examined under high definition white light as the instrument was slowly withdrawn in a retrograde panoramic fashion. Retroflexion was performed in rectum. The procedure was not difficult. There were no immediate obvious complications. The quality of the prep was BBPS: 2+3+3 = adequate Withdrawal time 13 minutes. Limitations: No limitations. Findings: Mucosa: There was moderate amount of melenotic stool present in the colon and terminal ileum. No active bleeding noted in the colon or T.I Protruding lesions: * Medium internal hemorrhoids without stigmata of recent bleeding. Impression: 1. Melena in T.I and R colon 2. Internal hemorrhoids Recommendations: - Chart reviewed, high suspicion for iron overload related cirrhosis and variceal bleeding can not be ruled out amish as he has splenomegaly and thrombocytopenia. - Will refer to ER for admission. - CBC, type and screen ordered. 1 dose of protonix IV 80 given in PACU. - Will need to be on clears today. NPO after MN for EGD tmrw. - Will also need IV octeotide, ceftriaxone and PPI
[2025-11-11 13:27] LABS: Hematocrit 37.7 % (42.0-52.0); Hemoglobin 13.6 g/dl (14.0-18.0); Imm Gran Abs Auto 0.13 X10*3/uL (0.00-0.03); Imm Gran Pct Auto 1.3 % (0.0-0.4); Lymphocytes Absolute Auto 2.8 X10*3/uL (1.2-4.9); MANUAL DIFF FLAG SCAN; Mean Corpuscular HGB Conc 36.1 g/dl (31.0-36.0); Mean Corpuscular Hemoglobin 35.4 pg (27.0-33.0); Mean Corpuscular Volume 98.2 fL (80.0-98.0); NRBC Abs Auto 0.080 X10*3/uL (0.0-0.012); NRBC Pct Auto 0.8 /100WBC (0.0-0.2); PLT CLUMP 1; Red Blood Count 3.84 X10*6/uL (4.60-5.80); SCAN SMEAR FLAG 1; White Blood Count 9.6 X10*3/uL (4.8-10.8)
[2025-11-11 13:43] LABS: Platelet Count 128 X10*3/uL (160-400)
[2025-11-11 14:38] LABS: Ferritin 4021 ng/mL (20-250)
== END | disposition home or self-care (01) ==
PROVIDERS: PCP Family Medicine; Visit Provider Internal Medicine
PROC: 0DJD8ZZ Inspection of Lower Intestinal Tract, Via Natural or Artificial Opening Endoscopic (ICD-10-PCS; CPT 45378; principal; 2025-11-11 13:30)
DX: Z12.11 Encounter for screening for malignant neoplasm of colon (principal); K92.1 Melena; K64.8 Other hemorrhoids; D58.0 Hereditary spherocytosis; R74.8 Abnormal levels of other serum enzymes; E05.90 Thyrotoxicosis, unspecified without thyrotoxic crisis or storm; Z79.899 Other long term (current) drug therapy; Z87.891 Personal history of nicotine dependence
CPT/HCPCS: 45378; 36415; 82728; 85025; 86850; 86900; 86901; J2003; J2704

== ENCOUNTER 2025-11-11 14:23 | Inpatient (IN) | payer OTHER, SELFPAY ==
[2025-11-11 14:27] VITALS: BP 122/72; PULSE 66; RESP 18; TEMP 36.6; O2SAT 98; BMI 26.2
--- NOTE | 2025-11-11 14:53 | ED_ITS ---
HPI - General Adult General Chief complaint: General Medical Stated complaint: ? GI Bleed Time Seen by Provider: 11/11/25 14:57 Source: patient, RN notes reviewed and other Mode of arrival: other Limitations: no limitations History of Present Illness ED Provider: Laura Nair PA-C HPI narrative: Patient presents from the Emergency Department for hospital admission under GI service recommendations. Blood bank wristband was verified and remains intact, avoiding need for repeat type & screen. Per prior GI consultation, the patient is to receive Platonix (antibiotic) and octreotide to decrease portal venous pressure and reduce risk of variceal bleeding. Clear liquid diet ordered until midnight followed by NPO status thereafter in preparation for an endoscopy planned for tomorrow. The patient is currently comfortable and requested to use the restroom prior to being connected to monitors/IV lines. No additional concerns voiced. Dr. Navya Velazquez : Impression: 1. Melena in T.I and R colon 2. Internal hemorrhoids Recommendations: - Chart reviewed, high suspicion for iron overload related cirrhosis and variceal bleeding can not be ruled out amish as he has splenomegaly and thrombocytopenia. - Will refer to ER for admission. - CBC, type and screen ordered. 1 dose of protonix IV 80 given in PACU. - Will need to be on clears today. NPO after MN for EGD tmrw. - Will also need IV octeotide, ceftriaxone and PPI Related Data Home Medications ?Medication ?Instructions ?Recorded ?Confirmed escitalopram oxalate 20 mg tablet 20 mg PO DAILY 06/0111/11/25 folic acid 1 mg tablet 1 mg PO DAILY 06/01/2511/11 omega 3-dyx-rrl-fish oil 60 mg-90 1 cap PO DAILY 07/0611/11/25 mg-500 mg capsule (Fish Oil) cholecalciferol (vitamin D3) 50 50 mcg PO DAILY 11/11/25 mcg (2,000 unit) tablet (Vitamin D3) latanoprost 0.005 % eye drops 1 drp ophthalmic (eye) B EDTIME 11/11/25 11/11/25 levothyroxine 100 mcg tablet 100 mcg PO DAILY@0600 11/11/25 (Synthroid) Previous Rx's ?Medication ?Instructions ?Recorded deferasirox 500 mg dispersible 1,500 mg (3 x 500 mg) P O DAILY #90 10/29/25 tablet (Exjade) ea Allergies Allergy/AdvReac Type Severity Reaction Status Date / Time No Known Allergies Allergy Verified 11/11/25 14:30 Review of Systems 2 Review of Systems: Yes all other systems are reviewed and are negative PMFSH Past Medical History Attestation statement: The following information was validated with the patient. Source: old records reviewed and nursing notes reviewed Medical History (Updated 11/20/25 @ 00:01 by Indio Cuellar) Splenomegaly Secondary hemochromatosis Hypothyroid Spherocytosis Surgical History (Updated 11/12/25 @ 14:11 by Vonnie Rai RN) H/O colonoscopy No pertinent past surgical history Social History Social History Household Members: Spouse Housing: House Are you a primary childcare center administrator to a significant other at home: No Do you presently have visiting nurse or other home services: No Alcohol intake: current Alcohol intake frequency: holidays/special occasions only Patient Tobacco Use Status: Former Tobacco user Tobacco use type: Cigarette e-Cigarette/Vaping Use: Never Used Second Hand Smoke Exposure: No service: No Current occupational status: employed Current occupation: professor Current occupational exposures/hazards: No Cognitive needs: No Hearing needs: No Vision needs: Yes Physical Exam ED Exam Exam: General: Appears in no acute distress, appears well-nourished body habitus is normal, appears stated age. No septic or ill-appearing. Vitals were reviewed as normal, and PMH/Social and Surgical hx was reviewed, including allergies and current medications. - reviewed for prior visits here Head: Normocephalic, no obvious trauma or skin lesions noted. Eyes: EOMI ENMT: moist oral mucosa Neck: trachea midline Cardiovascular: peripheral perfusion normal, Regular heart rate, regular rhythm Respiratory: no respiratory distress, lungs ctab Abdomen: non-distended, soft nontender Extremities: warm and moving without difficulty Psych: Cooperative Neuro: Alert and oriented. Vital Signs: Vital Signs - 24 hr 11/11/25 14:27 11/11/25 15:54 Temperature 97.9 F Pulse Rate 66 63 Respiratory Rate 18 18 Blood Pressure 122/72 111/68 Pulse Oximetry 98 100 Oxygen Delivery Method Room Air Room Air BMI result Body Mass Index 26.2 Medications Administered Discontinued Medications Generic Name Dose Route Start Last Admin Trade Name Freq PRN Reason Stop Dose Admin Escitalopram Oxalate 20 mg 11/12/25 09:00 11/12/25 08:15 Escitalopram Oxalate 20 Mg Tablet PO Not Given DAILY [facility] Folic Acid 1 mg 11/12/25 09:00 11/12/25 08:15 Folic Acid 1 Mg Tablet PO Not Given DAILY [facility] Ceftriaxone Sodium 2 gm/ 50 mls @ 100 mls/hr 11/11/25 14:57 11/11/25 16:19 Sodium Chloride IV 11/11/25 15:26 Infused ONCE ONE Infusion Octreotide Acetate 500 mcg/ 501 mls @ 25.05 mls/hr 11/11/25 16:00 11/12/25 11:47 Sodium Chloride IVCONT 25 mcg/hr .Q20H MYRA 25.05 mls/hr 25 MCG/HR Administration Lactated Ringer's 1,000 mls @ 50 mls/hr 11/12/25 15:15 11/12/25 16:24 Lr IVCONT Infused .Q20H MYRA Infusion Pantoprazole Sodium 40 mg 11/12/25 06:30 11/12/25 05:41 Pantoprazole Sodium 40 Mg/10 Ml Vial IVPUSH 40 mg BID@0630,1630 MYRA Administration Sodium Chloride 3 ml 11/12/25 00:00 11/12/25 08:14 0.9 % Sodium Chloride Flush 3 Ml Syringe IVFLUSH Not Given QSHIFT [facility] Medical Decision Making Medical Decision Making [facility] Narrative: The patient was admitted for management of portal hypertension and risk of variceal bleeding based on GI recommendations. The decision to initiate Platonix antibiotic and octreotide was made to reduce portal venous pressure and decrease the likelihood of bleeding from esophageal varices. The patient is stable and comfortable, and an endoscopic evaluation is scheduled for tomorrow to further assess and guide ongoing management. The current plan is to continue inpatient monitoring and follow GI-directed therapy. Patient admitted for continued GI-directed management as outlined below. Problem #1: Portal hypertension with risk of variceal bleeding Assessment: Patient requiring GI-directed therapy with IV antibiotic (Platonix) and octreotide infusion; plan for endoscopic evaluation tomorrow. Plan: - Initiate Platonix antibiotic as ordered by GI. - Start octreotide per protocol to reduce portal pressures. - Maintain clear liquid diet until 23:59, then NPO. - Endoscopy scheduled for tomorrow morning; continue to monitor and follow GI recommendations. - Reassess following procedure and adjust management accordingly. Follow-up: Inpatient monitoring; GI team to reevaluate post-endoscopy. Differential Diagnosis Differential Diagnoses: The differential diagnosis associated with the presentation includes portal hypertension variceal bleed Admission/Observation Consideration of admission/observation: Escalation of care including admission/observation considered Consult Healthcare Provider Management of the patient was discussed with: [employer] Lab Data MDM Lab Attestation statement: I reviewed the patient's lab results. 11/12/25 05:11 11/12/25 05:11 Labs: Lab Results 11/11/25 11/11/25 Range/Units 13:11 15:31 WBC 10.6 (4.8-10.8) X10*3/uL RBC 3.99 L (4.60-5.80) X10*6/uL Hgb 14.2 (14.0-18.0) g/dl Hct 38.8 L (42.0-52.0) % MCV 97.2 (80.0-98.0) fL MCH 35.6 H (27.0-33.0) pg MCHC 36.6 H (31.0-36.0) g/dl RDW 16.7 H (11.0-16.0) % Plt Count 127 L (160-400) X10*3/uL MPV 10.6 (9.4-12.4) fL Immature Gran % (Auto) 1.0 H (0.0-0.4) % Neut % (Auto) 60.6 (45-73) % Lymph % (Auto) 26.3 (20-40) % [place] % (Auto) 10.6 (2-11) % Eos % (Auto) 1.0 (0-4) % Baso % (Auto) 0.5 (0-2) % Lymph # (Auto) 2.8 (1.2-4.9) X10*3/uL [place] # (Auto) 1.1 (0.1-1.2) X10*3/uL Eos # (Auto) 0.1 (0.0-0.4) X10*3/uL Baso # (Auto) 0.1 (0.0-0.2) X10*3/uL Abs Immat Gran (auto) 0.11 H (0.00-0.03) X10*3/uL Absolute Neuts (auto) 6.4 (2.0-8.3) x10*3/uL Absolute Nucleated RBC 0.070 H (0.0-0.012) X10*3/uL Nucleated RBC % (auto) 0.7 H (0.0-0.2) /100WBC PT 13.3 (11.2-13.5) SEC INR 1.1 (0.9-1.1) Sodium 138 (135-145) mmol/L Potassium 4.1 (3.3-5.1) mmol/L Chloride 106 (96-108) mmol/L Carbon Dioxide 25 (22-29) mmol/L Anion Gap 11 L (12-20) BUN 13 (9-16) mg/dL Creatinine 0.88 (0.5-1.4) mg/dL Estim Creat Clear Calc 98.1 Estimated GFR > 60 Random Glucose 90 (60-115) mg/dL Calcium 9.4 (8.4-10.2) mg/dL Total Bilirubin 7.1 H (0.0-1.0) mg/dL Direct Bilirubin 0.6 H (0.0-0.5) mg/dL AST 58 H (5-37) U/L ALT 103 H (0-40) U/L Alkaline Phosphatase 66 (39-117) U/L Total Protein 7.3 (6.5-8.0) g/dL Albumin 5.2 H (3.5-5.0) g/dL Blood Type O Positive Antibody Screen POSITIVE Antibody Identification Anti-K Antigen Identification K Antigen - NEGATIVE Crossmatch (AHG) See Detail Blood Bank Comment Specimen External Record Review External record reviewed: Outpatient record Chronic Conditions Patient?s care impacted by: Other Social Determinants Patient?s care significantly limited by Social Determinants of Health including: Other Social Determinant of Health Critical Care Time Critical Care Time Critical Care Time: Yes Total Critical Care Time: 45 Attestation: This patient required critical care. Due to the fact that the patient required a significant amount of one on one physician ? patient contact time, ordering and review of studies, arranging urgent treatment with development of a management plan, evaluation of patient?s response to treatment with frequent reassessments, and discussions with other providers this patient required critical care time in excess of 30 minutes. Critical care time was indicated due to the inherent instability and/or potential for instability in this patient. The critical care time that is allocated to this patient is above and beyond any time spent on any other billable procedures performed on this patient. Discharge Plan Discharge Clinical Impression: GI (gastrointestinal bleed), Spherocytosis Patient Disposition: Admitted As Inpatient Interventions: Admission Worksheet (ED) Last Done: 11/12/25 09:34 Discharge Date/Time: 11/12/25 16:24
--- NOTE | 2025-11-11 14:57 | ECG_ITS ---
Test Reason : preop Blood Pressure : */* mmHG Vent. Rate : 59 BPM Atrial Rate : 59 BPM P-R Int : 194 ms QRS Dur : 96 ms QT Int : 440 ms P-R-T Axes : 27 64 12 degrees QTcB Int : 435 ms Sinus bradycardia Otherwise normal ECG No previous ECGs available Referred By: Laura Nair Electronically Signed By: Singh Rider
[2025-11-11 15:47] LABS: PLT CLUMP 1; SCAN SMEAR FLAG 1
[2025-11-11 15:49] LABS: Hematocrit 38.8 % (42.0-52.0); Hemoglobin 14.2 g/dl (14.0-18.0); Imm Gran Abs Auto 0.11 X10*3/uL (0.00-0.03); Imm Gran Pct Auto 1.0 % (0.0-0.4); Lymphocytes Absolute Auto 2.8 X10*3/uL (1.2-4.9); MANUAL DIFF FLAG SCAN; Mean Corpuscular HGB Conc 36.6 g/dl (31.0-36.0); Mean Corpuscular Hemoglobin 35.6 pg (27.0-33.0); Mean Corpuscular Volume 97.2 fL (80.0-98.0); NRBC Abs Auto 0.070 X10*3/uL (0.0-0.012); NRBC Pct Auto 0.7 /100WBC (0.0-0.2); Red Blood Count 3.99 X10*6/uL (4.60-5.80)
[2025-11-11 15:52] LABS: White Blood Count 10.6 X10*3/uL (4.8-10.8)
[2025-11-11 15:54] VITALS: BP 111/68; PULSE 63; RESP 18; O2SAT 100
--- NOTE | 2025-11-11 15:57 | PC.NURSE ---
pt is alert and oriented, skin appropriate for ethnicity, respirations even and unlabored, pt is coming up from pacu had outpatient routine colonoscopy noticed blood in the stool was sent up for admission and possible EGD, pt denies pain at this time vs stable, ns on the monitor
[2025-11-11 15:59] LABS: Alanine Aminotransferase 103 U/L (0-40); Albumin Level 5.2 g/dL (3.5-5.0); Alkaline Phosphatase 66 U/L (39-117); Anion Gap 11 (12-20); Aspartate Amino Transferase 58 U/L (5-37); Blood Urea Nitrogen 13 mg/dL (9-16); Calcium 9.4 mg/dL (8.4-10.2); Carbon Dioxide 25 mmol/L (22-29); Chloride 106 mmol/L (96-108); Creatinine Clr Calc Pharmacy 98.1; Estimated Glomerular Filt Rate > 60; Potassium 4.1 mmol/L (3.3-5.1); Sodium 138 mmol/L (135-145); Total Protein 7.3 g/dL (6.5-8.0)
[2025-11-11 16:03] LABS: INTERNATIONAL NORM RATIO 1.1 (0.9-1.1); Prothrombin Time 13.3 SEC (11.2-13.5)
[2025-11-11 16:20] LABS: Platelet Count 127 X10*3/uL (160-400)
--- NOTE | 2025-11-11 18:03 | PC.NURSE ---
reached out Dr Mendosa in regards to the 2 units of RBC's ordered the pt's h+h is 14.2 and 38.8 and currently do not have a blood transfusion consent form signed
--- NOTE | 2025-11-11 18:36 | PM.IMHP ---
History of Present Illness Date of Service: 11/11/25 Chief Complaint: melenotic stool 50M PMH hereditary spherocytosis, secondary hemochromatosis, splenomegaly, thyroid disorder (reports hyperthyroid but currently on levothyroxine), mood disorder sent in from endoscopy for melanotic stools. Patient was getting routine screening colonoscopy and noted to have melanotic stool. Given history of hemochromatosis and splenomegaly concern for variceal bleed. Was sent to ED and started on octreotide, ppi with plan for EGD in the morning. Patient himself denies any melanotic stool but does state that his stool is usually dark. Of note his total bilirubin is 7 direct bilirubin is pending, hemoglobin 14.2, Review of Systems Review of Systems: Yes all other systems are reviewed and are negative PMFSH Medical History Hyperthyroidism Spherocytosis Surgical History No pertinent past surgical history Social History Household Members: Spouse Housing: House Are you a primary foster care worker to a significant other at home: No Do you presently have visiting nurse or other home services: No Alcohol intake: current Alcohol intake frequency: holidays/special occasions only Patient Tobacco Use Status: Former Tobacco user Tobacco use type: Cigarette Smoked in Last 30 Days: No e-Cigarette/Vaping Use: Never Used Second Hand Smoke Exposure: No Use of substances other than those prescribed or required for medical reasons: No Advance Directives: No Advance Directives Information Provided: No Do you have a plan to hurt others: No Plan service: No Current occupational status: employed Current occupation: professor Current occupational exposures/hazards: No Cognitive needs: No Hearing needs: No Vision needs: Yes Meds Allergies Allergy/AdvReac Type Severity Reaction Status Date / Time No Known Allergies Allergy Verified 11/11/25 14:30 Active Medications: Current Medications Acetaminophen (Acetaminophen 325 Mg Tablet) 650 mg PO Q6H PRN PRN Reason: Pain, Mild 1-3,fever,headache Calcium Carbonate (Calcium Carbonate 750 Mg Tab.Chew) 750 mg PO Q4H PRN PRN Reason: Heartburn Octreotide Acetate 500 mcg/ (Sodium Chloride) 501 mls @ 25.05 mls/hr IVCONT .Q20H MYRA Last Admin: 11/11/25 16:19 Dose: 25 mcg/hr, 25.05 mls/hr Ceftriaxone Sodium 1 gm/ (Sodium Chloride) 50 mls @ 100 mls/hr IV Q24H [facility] Magnesium Hydroxide (Milk Of Magnesia 30 Ml Oral.Susp) 30 ml PO DAILY PRN PRN Reason: Constipation Melatonin (Melatonin 3 Mg Tablet) 6 mg PO BEDTIME PRN PRN Reason: Insomnia Pantoprazole Sodium (Pantoprazole Sodium 40 Mg/10 Ml Vial) 40 mg IVPUSH BID@0630,1630 [facility] Sodium Chloride (0.9 % Sodium Chloride Flush 3 Ml Syringe) 3 ml IVFLUSH QSHIFT [facility] Home Medications ?Medication ?Instructions ?Recorded ?Confirmed ?Last Taken ?Type escitalopram oxalate 20 mg tablet 20 mg PO DAILY 06/01/25 11/09/25 Unknown History folic acid 1 mg tablet 1 mg PO DAILY 06/01/25 11/09/25 Unknown History cholecalciferol (vitamin D3) 100 100 mcg PO DAILY 07/06/25 11/11/25 Unknown History mcg (4,000 unit) capsule omega 2-bbq-ugw-fish oil 60 mg-90 1 cap PO DAILY 07/06/25 11/11/25 11/04/25 History mg-500 mg capsule (Fish Oil) latanoprost 0.005 % eye drops 1 drp ophthalmic (eye) BEDTIME 11/11/25 Unknown History levothyroxine 100 mcg tablet 100 mcg PO DAILY@0600 11/11/25 Unknown History (Synthroid) omeprazole 40 mg capsule,delayed 40 mg PO BID@0630,1630 11/11/25 Unknown History release Physical Exam Vital Signs and Narrative: Vital Signs: Last Vital Signs Temp 97.9 F 11/11/25 14:27 Pulse 63 11/11/25 15:54 Resp 18 11/11/25 15:54 BP 111/68 11/11/25 15:54 Pulse Ox 100 11/11/25 15:54 O2 Del Method Room Air 11/11/25 15:54 BMI result Body Mass Index 26.2 General: AO X 3, no acute distress Resp: CTA bilateral, no accessory muscles used CVS: S1,S2,RRR GI: soft, non tender, non distended Neuro: motor grossly intact, alert Psych: appropriate affect, appropriate insight Results Labs 11/11/25 15:31 11/11/25 15:31 Labs: Laboratory Results - last 24 hr 11/11/25 11/11/25 13:11 15:31 MCV 97.2 MCH 35.6 H MCHC 36.6 H RDW 16.7 H Plt Count 127 L MPV 10.6 Immature Gran % (Auto) 1.0 H Neut % (Auto) 60.6 Lymph % (Auto) 26.3 [place] % (Auto) 10.6 Eos % (Auto) 1.0 Baso % (Auto) 0.5 Lymph # (Auto) 2.8 [place] # (Auto) 1.1 Eos # (Auto) 0.1 Baso # (Auto) 0.1 Abs Immat Gran (auto) 0.11 H Absolute Neuts (auto) 6.4 Absolute Nucleated RBC 0.070 H Nucleated RBC % (auto) 0.7 H PT 13.3 INR 1.1 Anion Gap 11 L Estim Creat Clear Calc 98.1 Estimated GFR > 60 Random Glucose 90 Calcium 9.4 Total Bilirubin 7.1 H AST 58 H ALT 103 H Alkaline Phosphatase 66 Total Protein 7.3 Albumin 5.2 H Blood Type O Positive Antibody Screen POSITIVE Antibody Identification Anti-K Antigen Identification K Antigen - NEGATIVE Crossmatch (AHG) See Detail Blood Bank Comment Specimen Assessment and Plan (1) GI (gastrointestinal bleed): Status: Acute Plan 50M PMH hereditary spherocytosis, secondary hemochromatosis, splenomegaly, thyroid disorder (reports hyperthyroid but currently on levothyroxine), mood disorder sent in from endoscopy for melanotic stools. Melanotic stool PPI, octreotide, monitor hemoglobin, plan for EGD tomorrow Jaundice with Hereditary spherocytosis ? 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 Follow up direct bili Thyroid disorder Listed as hyperthyroid but appears to be on levothyroxine Last TSH within normal limits Mood disorder continue Lexapro DVT prophylaxis-mechanical due to GI bleed Full code Given concern for GI bleed and possible variceal bleed patient high-risk for adverse outcome and requires close monitoring IV octreotide and PPI and plan for endoscopy therefore expected require at least 2 midnights inpatient Quality Stroke Does the patient have a stroke diagnosis?: No VTE Prior VTE?: No VTE Risk Level:: Medical - moderate - high VTE Device Contraindication: N/A - Device Ordered VTE Drug Contraindication: Treatment Not Tolerated
[2025-11-11 18:48] VITALS: BP 111/65; PULSE 76; RESP 12; TEMP 36.8; O2SAT 100
--- NOTE | 2025-11-11 18:52 | PHA.MEDREC ---
Addendum entered by Verena Devine RPh 11/11/25 19:24: reviewed by [facility]. Original Note: Pharmacy Consult ? Medication Reconciliation Pharmacy has completed the medication reconciliation. Spoke with pt and he confirmed his medications. Pt was suppose to have a colonoscopy today with us but is now admitted into our ED. Pt does not think he is taking Omeprazole and states that med does not sound familiar to him at all.
[2025-11-11 22:02] VITALS: BP 119/76; PULSE 71; RESP 12; TEMP 36.8; O2SAT 98
[2025-11-12] VITALS (12 sets, daily range): BP systolic 101–122; BP diastolic 57–77; PULSE 63–74; RESP 12–20; TEMP 36.1–36.6; O2SAT 97–100
[2025-11-12 05:40] LABS: NRBC Pct Auto 1.0 /100WBC (0.0-0.2); PLT CLUMP 1
[2025-11-12 05:42] LABS: Hematocrit 34.5 % (42.0-52.0); Hemoglobin 12.4 g/dl (14.0-18.0); Mean Corpuscular HGB Conc 35.9 g/dl (31.0-36.0); Mean Corpuscular Hemoglobin 34.9 pg (27.0-33.0); Mean Corpuscular Volume 97.2 fL (80.0-98.0); NRBC Abs Auto 0.090 X10*3/uL (0.0-0.012); Red Blood Count 3.55 X10*6/uL (4.60-5.80)
[2025-11-12 05:51] LABS: Platelet Count 121 X10*3/uL (160-400); White Blood Count 8.7 X10*3/uL (4.8-10.8)
[2025-11-12 06:15] LABS: Alanine Aminotransferase 92 U/L (0-40); Albumin Level 4.6 g/dL (3.5-5.0); Alkaline Phosphatase 64 U/L (39-117); Anion Gap 13 (12-20); Aspartate Amino Transferase 51 U/L (5-37); Blood Urea Nitrogen 15 mg/dL (9-16); Calcium 9.2 mg/dL (8.4-10.2); Carbon Dioxide 24 mmol/L (22-29); Chloride 104 mmol/L (96-108); Creatinine Clr Calc Pharmacy 98.1; Estimated Glomerular Filt Rate > 60; Magnesium 2.3 mg/dL (1.6-2.6); Potassium 4.2 mmol/L (3.3-5.1); Sodium 137 mmol/L (135-145); Total Protein 6.5 g/dL (6.5-8.0)
--- NOTE | 2025-11-12 09:31 | PC.NURSE ---
RN to RN report given for EDG at this time. patient undressed plan of care ongoing
--- NOTE | 2025-11-12 09:34 | HO.ANESPROP2 ---
Documented by User: Mary Stacy NP 11/12/25 09:36 HPI - Anesthesia Eval Consult details Narrative: 50 yr old female for endoscopy Sent from endoscopy room after colon for melena noted. Hereditary spherocytosis, iron overload state: follows [facility]: not from 10/29/25 states Blood work shows worsening of ferritin level as well as liver enzymes. A new prescription for Exjade 1500 mg p.o. daily . ? 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 INR 1.1 on 11/11/25 PMFSH Active Problems Active Problems: All Active Problems GI (gastrointestinal bleed) (Acute) Immunization counseling (Acute) Elevated liver enzymes (Acute) Hearing loss (Acute) Screening for prostate cancer (Acute) Screening for colon cancer (Acute) Adult general medical exam (Acute) Spherocytosis (Chronic) Past Medical History Medical History Hyperthyroidism Spherocytosis Family History Family history of problems with anesthesia: No Surgical History Surgical History (Updated 11/12/25 @ 14:11 by Vonnie Rai RN) H/O colonoscopy No pertinent past surgical history History of Problems with Anesthesia: No Social History Social History Household Members: Spouse Housing: House Are you a primary career development consultant to a significant other at home: No Do you presently have visiting nurse or other home services: No Alcohol intake: current Alcohol intake frequency: holidays/special occasions only Patient Tobacco Use Status: Former Tobacco user Tobacco use type: Cigarette Smoked in Last 30 Days: No e-Cigarette/Vaping Use: Never Used Second Hand Smoke Exposure: No Use of substances other than those prescribed or required for medical reasons: No Have you been hit, kicked, punched, or otherwise hurt by someone within the past year? If so, by whom?: No Are you DNR?: No Advance Directives: No Advance Directives Information Provided: No Do you have a plan to hurt others: No Plan Nutrition Risks: No Nutritional Risk service: No Current occupational status: employed Current occupation: professor Current occupational exposures/hazards: No Cognitive needs: No Hearing needs: No Vision needs: Yes Meds Allergies Allergy/AdvReac Type Severity Reaction Status Date / Time No Known Allergies Allergy Verified 11/11/25 14:30 Active Medications: Current Medications Acetaminophen (Acetaminophen 325 Mg Tablet) 650 mg PO Q6H PRN PRN Reason: Pain, Mild 1-3,fever,headache Calcium Carbonate (Calcium Carbonate 750 Mg Tab.Chew) 750 mg PO Q4H PRN PRN Reason: Heartburn Escitalopram Oxalate (Escitalopram Oxalate 20 Mg Tablet) 20 mg PO DAILY [facility] Last Admin: 11/12/25 08:15 Dose: Not Given Folic Acid (Folic Acid 1 Mg Tablet) 1 mg PO DAILY [facility] Last Admin: 11/12/25 08:15 Dose: Not Given Octreotide Acetate 500 mcg/ (Sodium Chloride) 501 mls @ 25.05 mls/hr IVCONT .Q20H [facility] Last Admin: 11/11/25 16:19 Dose: 25 mcg/hr, 25.05 mls/hr Ceftriaxone Sodium 1 gm/ (Sodium Chloride) 50 mls @ 100 mls/hr IV Q24H [facility] Latanoprost (Latanoprost 0.005 % Ophth Allison 2.5 Ml Drops) 1 drop EYE-BOTH BEDTIME [facility] Levothyroxine Sodium (Levothyroxine Sodium 100 Mcg Tablet) 100 mcg PO DAILY@0600 [facility] Magnesium Hydroxide (Milk Of Magnesia 30 Ml Oral.Susp) 30 ml PO DAILY PRN PRN Reason: Constipation Melatonin (Melatonin 3 Mg Tablet) 6 mg PO BEDTIME PRN PRN Reason: Insomnia Non-Formulary Medication (Deferasirox [Exjade]) 1,500 mg PO DAILY [facility] Pantoprazole Sodium (Pantoprazole Sodium 40 Mg/10 Ml Vial) 40 mg IVPUSH BID@0630,1630 [facility] Last Admin: 11/12/25 05:41 Dose: 40 mg Sodium Chloride (0.9 % Sodium Chloride Flush 3 Ml Syringe) 3 ml IVFLUSH QSHIFT [facility] Last Admin: 11/12/25 08:14 Dose: Not Given Home Medications ?Medication ?Instructions ?Recorded ?Confirmed ?Last Taken ?Type escitalopram oxalate 20 mg tablet 20 mg PO DAILY 06/01/25 11/11/25 11/10/25 History folic acid 1 mg tablet 1 mg PO DAILY 06/01/25 11/11/25 11/09/25 History omega 7-bfk-rli-fish oil 60 mg-90 1 cap PO DAILY 07/06/25 11/11/25 11/09/25 History mg-500 mg capsule (Fish Oil) cholecalciferol (vitamin D3) 50 50 mcg PO DAILY 11/11/25 11/11/25 11/09/25 History mcg (2,000 unit) tablet (Vitamin D3) latanoprost 0.005 % eye drops 1 drp ophthalmic (eye) BEDTIME 11/11/25 11/11/25 11/09/25 History levothyroxine 100 mcg tablet 100 mcg PO DAILY@0600 11/11/25 11/11/25 11/11/25 History (Synthroid) Exam Height,Weight and Vital Signs: Height 5 ft 9 in Weight 80.5 kg Last Vital Signs Temp 97.8 F 11/12/25 05:40 Pulse 63 11/12/25 08:08 Resp 12 11/12/25 08:08 BP 120/73 11/12/25 08:08 Pulse Ox 100 11/12/25 08:08 O2 Del Method Room Air 11/12/25 08:08 Pertinent Lab Results Pertinent Lab Results: Laboratory Tests 11/11/25 11/11/25 11/12/25 13:11 15:31 05:11 WBC 10.6 8.7 RBC 3.99 L 3.55 L Hgb 14.2 12.4 L Hct 38.8 L 34.5 L MCV 97.2 97.2 MCH 35.6 H 34.9 H MCHC 36.6 H 35.9 RDW 16.7 H 16.8 H Plt Count 127 L 121 L MPV 10.6 11.2 Immature Gran % (Auto) 1.0 H Neut % (Auto) 60.6 Lymph % (Auto) 26.3 [place] % (Auto) 10.6 Eos % (Auto) 1.0 Baso % (Auto) 0.5 Lymph # (Auto) 2.8 [place] # (Auto) 1.1 Eos # (Auto) 0.1 Baso # (Auto) 0.1 Abs Immat Gran (auto) 0.11 H Absolute Neuts (auto) 6.4 Absolute Nucleated RBC 0.070 H 0.090 H Nucleated RBC % (auto) 0.7 H 1.0 H PT 13.3 INR 1.1 Sodium 138 137 Potassium 4.1 4.2 Chloride 106 104 Carbon Dioxide 25 24 Anion Gap 11 L 13 BUN 13 15 Creatinine 0.88 0.88 Estim Creat Clear Calc 98.1 98.1 Estimated GFR > 60 > 60 Random Glucose 90 123 H Calcium 9.4 9.2 Magnesium 2.3 Total Bilirubin 7.1 H 6.8 H Direct Bilirubin 0.6 H 0.6 H AST 58 H 51 H ALT 103 H 92 H Alkaline Phosphatase 66 64 Total Protein 7.3 6.5 Albumin 5.2 H 4.6 Blood Type O Positive Antibody Screen POSITIVE Antibody Identification Anti-K Antigen Identification K Antigen - NEGATIVE Crossmatch (AHG) See Detail Blood Bank Comment Specimen Narrative Narrative: EKG 11/11/25 Vent. Rate : 59 BPM Atrial Rate : 59 BPM P-R Int : 194 ms QRS Dur : 96 ms QT Int : 440 ms P-R-T Axes : 27 64 12 degrees QTcB Int : 435 ms Sinus bradycardia Otherwise normal ECG No previous ECGs available Assessment and Plan Final Anesthetic Review Family History of Problems with Anesthesia: No History of Problems with Anesthesia: No Documented by User: Yelitza Pimentel MD 11/12/25 14:24 [facility] Past Medical History Medical History Hyperthyroidism Spherocytosis Surgical History Surgical History (Updated 11/12/25 @ 14:11 by Vonnie Rai RN) H/O colonoscopy No pertinent past surgical history Social History Social History Household Members: Spouse Housing: House Are you a primary career development consultant to a significant other at home: No Do you presently have visiting nurse or other home services: No Alcohol intake: current Alcohol intake frequency: holidays/special occasions only Patient Tobacco Use Status: Former Tobacco user Tobacco use type: Cigarette Smoked in Last 30 Days: No e-Cigarette/Vaping Use: Never Used Second Hand Smoke Exposure: No Use of substances other than those prescribed or required for medical reasons: No Have you been hit, kicked, punched, or otherwise hurt by someone within the past year? If so, by whom?: No Are you DNR?: No Advance Directives: No Advance Directives Information Provided: No Do you have a plan to hurt others: No Plan Nutrition Risks: No Nutritional Risk service: No Current occupational status: employed Current occupation: Current occupational exposures/hazards: No Cognitive needs: No Hearing needs: No Vision needs: Yes Meds Allergies Allergy/AdvReac Type Severity Reaction Status Date / Time No Known Allergies Allergy Verified 11/11/25 14:30 Home Medications ?Medication ?Instructions ?Recorded ?Confirmed ?Last Taken ?Type escitalopram oxalate 20 mg tablet 20 mg PO DAILY 06/01/25 11/11/25 11/10/25 History folic acid 1 mg tablet 1 mg PO DAILY 06/01/25 11/11/25 11/09/25 History omega 1-uqr-avb-fish oil 60 mg-90 1 cap PO DAILY 07/06/25 11/11/25 11/09/25 History mg-500 mg capsule (Fish Oil) cholecalciferol (vitamin D3) 50 50 mcg PO DAILY 11/11/25 11/11/25 11/09/25 History mcg (2,000 unit) tablet (Vitamin D3) latanoprost 0.005 % eye drops 1 drp ophthalmic (eye) BEDTIME 11/11/25 11/11/25 11/09/25 History levothyroxine 100 mcg tablet 100 mcg PO DAILY@0600 11/11/25 11/11/25 11/11/25 History (Synthroid) Exam Airway Mallampati Class: II (caps/bridge) TM Dist: >3cm Neck ROM: Full Heart: rrr Lungs: cta Assessment and Plan Assessment Anesthesia Assessment: Anesthesia Plan Discussed and Chart Reviewed Final Anesthetic Review NPO: Yes ASA Class: III Final Preanesthetic Review: No Changes in Pt Med Stat, Meds/Allgs Chart Reviewed and Consent Obtained/Reviewed Patient Risk: Low Procedure Risk: Intermediate Anesthetic Plan Anesthetic Plan: MAC: Disposition: Standard PACU
--- NOTE | 2025-11-12 09:56 | MHC.CM.PN ---
PATIENT LIVES WITH AND IS FULLY INDEPENDENT WITH ADLS. 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 NO DME OR VNA. HE BELIEVES THAT IS ALREADY HCP AGENT AND A COPY IS REQUESTED FOR MEDICAL RECORD. HE IS ALSO AWARE THAT IF THERE IS NO HCP DOCUMENT, THAT CASE MANAGEMENT CAN ASSIST WITH COMPLETING ONE IF HE CHOOSES. CURRENT PLAN IS HOME - SELF CARE. PATIENT HAS TRNSPORT HOME
--- NOTE | 2025-11-12 10:15 | P.PNIM_ITS ---
Subjective Subjective Date of Service: 11/12/25 Interval History: no bleeding Physical Exam 2 Exam: Exam: General: AO X 3, no acute distress Resp: CTA bilateral, no accessory muscles used CVS: S1,S2,RRR GI: soft, non tender, non distended Neuro: motor grossly intact, alert Psych: appropriate affect, appropriate insight Vital Signs: Vital Signs: Last Vital Signs Temp 97.8 F 11/12/25 05:40 Pulse 72 11/12/25 10:00 Resp 16 11/12/25 10:00 BP 122/57 L 11/12/25 10:00 Pulse Ox 99 11/12/25 10:00 O2 Del Method Room Air 11/12/25 10:00 BMI result Body Mass Index 26.2 Objective Data Active Medications Acetaminophen (Acetaminophen 325 Mg Tablet) 650 mg PO Q6H PRN PRN Reason: Pain, Mild 1-3,fever,headache Calcium Carbonate (Calcium Carbonate 750 Mg Tab.Chew) 750 mg PO Q4H PRN PRN Reason: Heartburn Escitalopram Oxalate (Escitalopram Oxalate 20 Mg Tablet) 20 mg PO DAILY [facility] Last Admin: 11/12/25 08:15 Dose: Not Given Documented By: SRAVANTHI Non-Admin Reason: NPO Folic Acid (Folic Acid 1 Mg Tablet) 1 mg PO DAILY [facility] Last Admin: 11/12/25 08:15 Dose: Not Given Documented By: SRAVANTHI Non-Admin Reason: NPO Octreotide Acetate 500 mcg/ (Sodium Chloride) 501 mls @ 25.05 mls/hr IVCONT .Q20H [facility] Last Admin: 11/11/25 16:19 Dose: 25 mcg/hr, 25.05 mls/hr Documented By: DENIS Ceftriaxone Sodium 1 gm/ (Sodium Chloride) 50 mls @ 100 mls/hr IV Q24H [facility] Latanoprost (Latanoprost 0.005 % Ophth Allison 2.5 Ml Drops) 1 drop EYE-BOTH BEDTIME [facility] Levothyroxine Sodium (Levothyroxine Sodium 100 Mcg Tablet) 100 mcg PO DAILY@0600 [facility] Magnesium Hydroxide (Milk Of Magnesia 30 Ml Oral.Susp) 30 ml PO DAILY PRN PRN Reason: Constipation Melatonin (Melatonin 3 Mg Tablet) 6 mg PO BEDTIME PRN PRN Reason: Insomnia Non-Formulary Medication (Deferasirox [Exjade]) 1,500 mg PO DAILY [facility] Pantoprazole Sodium (Pantoprazole Sodium 40 Mg/10 Ml Vial) 40 mg IVPUSH BID@0630,1630 [facility] Last Admin: 11/12/25 05:41 Dose: 40 mg Documented By: SHELLY Sodium Chloride (0.9 % Sodium Chloride Flush 3 Ml Syringe) 3 ml IVFLUSH QSHIFT [facility] Last Admin: 11/12/25 08:14 Dose: Not Given Documented By: SRAVANTHI Non-Admin Reason: IV Running Labs 11/12/25 05:11 11/12/25 05:11 Labs: Laboratory Results - last 24 hr 11/11/25 11/11/25 11/12/25 13:11 15:31 05:11 MCV 97.2 97.2 MCH 35.6 H 34.9 H MCHC 36.6 H 35.9 RDW 16.7 H 16.8 H Plt Count 127 L 121 L MPV 10.6 11.2 Immature Gran % (Auto) 1.0 H Neut % (Auto) 60.6 Lymph % (Auto) 26.3 [place] % (Auto) 10.6 Eos % (Auto) 1.0 Baso % (Auto) 0.5 Lymph # (Auto) 2.8 [place] # (Auto) 1.1 Eos # (Auto) 0.1 Baso # (Auto) 0.1 Abs Immat Gran (auto) 0.11 H Absolute Neuts (auto) 6.4 Absolute Nucleated RBC 0.070 H 0.090 H Nucleated RBC % (auto) 0.7 H 1.0 H PT 13.3 INR 1.1 Anion Gap 11 L 13 Estim Creat Clear Calc 98.1 98.1 Estimated GFR > 60 > 60 Random Glucose 90 123 H Calcium 9.4 9.2 Magnesium 2.3 Total Bilirubin 7.1 H 6.8 H Direct Bilirubin 0.6 H 0.6 H AST 58 H 51 H ALT 103 H 92 H Alkaline Phosphatase 66 64 Total Protein 7.3 6.5 Albumin 5.2 H 4.6 Blood Type O Positive Antibody Screen POSITIVE Antibody Identification Anti-K Antigen Identification K Antigen - NEGATIVE Crossmatch (AHG) See Detail Blood Bank Comment Specimen Assessment and Plan (1) Spherocytosis: Status: Chronic Plan 50M PMH hereditary spherocytosis, secondary hemochromatosis, splenomegaly, thyroid disorder (reports hyperthyroid but appears to be error, should be hypothyroid), mood disorder sent in from endoscopy for melanotic stools. Melanotic stool PPI, octreotide, monitor hemoglobin, plan for EGD Jaundice with Hereditary spherocytosis exclusively indirect likely Due to hemolysis outpatient follow up, ? 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
--- NOTE | 2025-11-12 12:08 | PM.GIPN ---
Subjective Subjective Date of Service: 11/12/25 Interval History: Seen at bedside. Reports no acute GI sx. Hb down to 12.4. Also with hemolysis. Critical Care Time (minutes): 0 Physical Exam Exam: Exam: No apparent distress Nonicteric Abdomen soft, nondistended Alert and oriented x3 Vital Signs: Vital Signs: Last Vital Signs Temp 97.8 F 11/12/25 05:40 Pulse 67 11/12/25 11:50 Resp 12 11/12/25 11:50 BP 109/69 11/12/25 11:57 Pulse Ox 97 11/12/25 11:57 O2 Del Method Room Air 11/12/25 11:57 BMI result Body Mass Index 26.2 Objective Data Labs 11/12/25 05:11 11/12/25 05:11 Labs: Laboratory Results - last 24 hr 11/11/25 11/11/25 11/12/25 13:11 15:31 05:11 WBC 10.6 8.7 RBC 3.99 L 3.55 L Hgb 14.2 12.4 L Hct 38.8 L 34.5 L MCV 97.2 97.2 MCH 35.6 H 34.9 H MCHC 36.6 H 35.9 RDW 16.7 H 16.8 H Plt Count 127 L 121 L MPV 10.6 11.2 Immature Gran % (Auto) 1.0 H Neut % (Auto) 60.6 Lymph % (Auto) 26.3 [place] % (Auto) 10.6 Eos % (Auto) 1.0 Baso % (Auto) 0.5 Lymph # (Auto) 2.8 [place] # (Auto) 1.1 Eos # (Auto) 0.1 Baso # (Auto) 0.1 Abs Immat Gran (auto) 0.11 H Absolute Neuts (auto) 6.4 Absolute Nucleated RBC 0.070 H 0.090 H Nucleated RBC % (auto) 0.7 H 1.0 H PT 13.3 INR 1.1 Sodium 138 137 Potassium 4.1 4.2 Chloride 106 104 Carbon Dioxide 25 24 Anion Gap 11 L 13 BUN 13 15 Creatinine 0.88 0.88 Estim Creat Clear Calc 98.1 98.1 Estimated GFR > 60 > 60 Random Glucose 90 123 H Calcium 9.4 9.2 Magnesium 2.3 Total Bilirubin 7.1 H 6.8 H Direct Bilirubin 0.6 H 0.6 H AST 58 H 51 H ALT 103 H 92 H Alkaline Phosphatase 66 64 Total Protein 7.3 6.5 Albumin 5.2 H 4.6 Blood Type O Positive Antibody Screen POSITIVE Antibody Identification Anti-K Antigen Identification K Antigen - NEGATIVE Crossmatch (AHG) See Detail Blood Bank Comment Specimen Procedures Date of Service Date of Service: 11/12/25 Progress Note: A&P Assessment and plan (1) GI (gastrointestinal bleed): Status: Acute (2) Spherocytosis: Status: Chronic (3) Hemolytic anemia: Status: Acute Plan Patient with routine outpatient colonoscopy yesterday that showed melena and terminal ileum and right colon. He is scheduled to have an upper endoscopy today to localize bleeding and achieve hemostasis as needed. Ddx include varices, GAVE, AVMs, PUD. Of note, patient also has history of spherocytosis, and labs also suggestive of ongoing hemolysis given indirect hyperbilirubinemia. Plan: - Keep NPO for EGD today - Cont IV octreotide, PPI and ceftriaxone - Further recommendations to follow in the procedure note. Time Spent With Patient Time: Total time managing care of this patient today ____ minutes. Quality Stroke Does the patient have a stroke diagnosis?: No VTE Prior VTE?: No VTE Risk Level:: Medical - moderate - high VTE Device Contraindication: N/A - Device Ordered VTE Drug Contraindication: Treatment Not Tolerated
--- NOTE | 2025-11-12 14:22 | PC.NURSE ---
iv patent x2
--- NOTE | 2025-11-12 14:23 | PC.NURSE ---
Pt taken to [facility] for EJD- awainting C room assignment
[2025-11-12] MEDS: Lactated Ringers 1,000 ML 50 ML IVCONT (15:15)
--- NOTE | 2025-11-12 15:36 | P.OP_ITS ---
Operative Note Operative Note Date of Service: 11/12/25 Narrative: Procedure: Esophagogastroduodenoscopy Endoscopist: Navya Velazquez MD Indication: r/o GIB Anesthesia Provider: Dr Yelitza Leung Anesthesia Type: MAC ?? EGD Procedure:?? The procedure, indications, preparation and potential complications were reviewed with the patient, who indicated understanding and gave written informed consent to proceed. A physical exam was performed. The endoscope was introduced through the mouth, and advanced to the second part of duodenum. The mucosa was carefully examined on slow withdrawal of the endoscope. The patient tolerated the procedure well. There were no immediate complications.? ? EGD Findings:? * Esophagus:? Normal mucosa noted in the entire esophagus. The Z line was at 40 cm. No esophageal varices were noted. * Stomach:? Normal mucosa was noted in the stomach. No signs of PHG appreciated. No fundal varices noted on retroflexion. * Duodenum:? Normal mucosa was noted in the whole of the examined duodenum. ? EGD Impressions:? * Normal esophagus * Normal stomach * Normal duodenum ?? Recommendations:?? * No stigmata of CSPH on EGD. * Can be discharged from GI standpoint with CBC check in 1 week Above has been reviewed with the patient. Attempted to update spouse Young-In over the phone but she could not be reached. LVM re above.
--- NOTE | 2025-11-12 15:39 | P.DS_ITS ---
DS: Providers Provider Date of admission: 11/11/25 18:10 Date of discharge: 11/12/25 Primary care physician: Ibrahima Gil MD Consults: 11/12/25 07:48 Consult to Gastroenterology Routine Consulting Provider: [facility] [place] [place] Gastroenterology Services Reason for consultation: ?gi bleed Has provider been notified: Yes DS: Diagnosis Discharge Diagnosis (1) Spherocytosis: Status: Chronic (2) Hemolytic anemia: Status: Acute DS: Summary Hospital Course Hospital Course: from initial hpi: 50M PMH hereditary spherocytosis, secondary hemochromatosis, splenomegaly, hyp othyroid, mood disorder sent in from endoscopy for melanotic stools. Patient was getting routine screening colonoscopy and noted to have melanotic stool. Given history of hemochromatosis and splenomegaly concern for variceal bleed. Was sent to ED and started on octreotide, ppi with plan for EGD in the morning. Patient himself denies any melanotic stool but does state that his stool is usually dark. Of note his total bilirubin is 7 direct bilirubin is pending, hemoglobin 14.2, hospital course: Patient was admitted for melanotic stool. He was empirically treated for possible variceal bleed with PPI and octreotide. He underwent EGD which was essentially normal. Hemoglobin remained stable. 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 Patient was continued on iron chelator and he should follow up with Hematology and may need splenectomy in the future. For thyroid disorder, previous documentation mentioned hypothyroid though this appears to be an error patient reports only ever being on levothyroxine this is likely for history of hypothyroid. For mood disorder was continued on Lexapro. Patient is medically stable and he will be discharged home. Time Attestation Discharge Coordination Time (in mins): 32 Quality: Safe Use of Opioids Does Pt have an Active Cancer Diagnosis on the Problem List?: No Quality: Stroke Does the patient have a stroke diagnosis?: No Physical Exam Vital Signs: Vital Signs: Last Vital Signs Temp 97 F 11/12/25 14:16 Pulse 69 11/12/25 14:16 Resp 20 11/12/25 14:16 BP 119/71 11/12/25 14:16 Pulse Ox 98 11/12/25 14:16 O2 Del Method Room Air 11/12/25 14:16 BMI result Body Mass Index 26.2 DS: Data Data Completed and Pending Labs on day of discharge: Laboratory Results - last 24 hr 11/11/25 11/11/25 11/12/25 13:11 15:31 05:11 WBC 10.6 8.7 RBC 3.99 L 3.55 L Hgb 14.2 12.4 L Hct 38.8 L 34.5 L MCV 97.2 97.2 MCH 35.6 H 34.9 H MCHC 36.6 H 35.9 RDW 16.7 H 16.8 H Plt Count 127 L 121 L MPV 10.6 11.2 Immature Gran % (Auto) 1.0 H Neut % (Auto) 60.6 Lymph % (Auto) 26.3 [place] % (Auto) 10.6 Eos % (Auto) 1.0 Baso % (Auto) 0.5 Lymph # (Auto) 2.8 [place] # (Auto) 1.1 Eos # (Auto) 0.1 Baso # (Auto) 0.1 Abs Immat Gran (auto) 0.11 H Absolute Neuts (auto) 6.4 Absolute Nucleated RBC 0.070 H 0.090 H Nucleated RBC % (auto) 0.7 H 1.0 H PT 13.3 INR 1.1 Sodium 138 137 Potassium 4.1 4.2 Chloride 106 104 Carbon Dioxide 25 24 Anion Gap 11 L 13 BUN 13 15 Creatinine 0.88 0.88 Estim Creat Clear Calc 98.1 98.1 Estimated GFR > 60 > 60 Random Glucose 90 123 H Calcium 9.4 9.2 Magnesium 2.3 Total Bilirubin 7.1 H 6.8 H Direct Bilirubin 0.6 H 0.6 H AST 58 H 51 H ALT 103 H 92 H Alkaline Phosphatase 66 64 Total Protein 7.3 6.5 Albumin 5.2 H 4.6 Blood Type O Positive Antibody Screen POSITIVE Antibody Identification Anti-K Antigen Identification K Antigen - NEGATIVE Crossmatch (AHG) See Detail Blood Bank Comment Specimen Discharge Plan Discharge Anticipated Discharge Date/Time: 11/12/25 15:38 Patient Disposition: Home, Self-Care Discharge Diagnosis: melanotic stool Referrals: Malinda Hannah MD [Physician, Hematology & Oncology] - 1 Week Ibrahima Gil MD [Primary Care Provider, Internal Medicine] - 1 Week Discharge Medications: Continued folic acid 1 mg tablet 1 mg PO DAILY escitalopram oxalate 20 mg tablet 20 mg PO DAILY omega 5-ryv-xdw-fish oil [Fish Oil] 60-90-500 mg Capsule 1 cap PO DAILY deferasirox [Exjade] 500 mg Tablet, Dispersible 1,500 mg PO DAILY Qty: 90 3RF latanoprost 0.005 % drops 1 drp ophthalmic (eye) BEDTIME levothyroxine [Synthroid] 100 mcg tablet 100 mcg PO DAILY@0600 cholecalciferol (vitamin D3) [Vitamin D3] 50 mcg (2,000 unit) Tablet 50 mcg PO DAILY Discharge Orders: Discharge Order (Routine); Ordered 11/12/25 Ordered By: Temo Carranza Diet: Advance to usual diet Activity on Discharge: As tolerated Stand Alone Forms: Patient Portal Discharge page Print Language: [place] Care Plan Goals: Recovery Health Concerns: Severe steatosis and iron overload Plan of Treatment: Follow up with Hematology, consider splenectomy Assessment: See above
== END 2025-11-12 16:31 | disposition home or self-care (01) | DRG 663 ==
LOC: HO.ED 18:08 → HO.EDOVER 18:16
PROVIDERS: Internal Medicine; Physician Assistant Medical; Admitting Provider Internal Medicine; Emergency Provider Emergency Medicine Emergency Medical Services; PCP Family Medicine; Visit Provider Internal Medicine
PROC: 0DJ08ZZ Inspection of Upper Intestinal Tract, Via Natural or Artificial Opening Endoscopic (ICD-10-PCS; CPT 43235; principal; 2025-11-12 15:10)
DX: D58.0 Hereditary spherocytosis (principal); E03.9 Hypothyroidism, unspecified; E83.118 Other hemochromatosis; F39 Unspecified mood [affective] disorder; R19.5 Other fecal abnormalities; Z79.890 Hormone replacement therapy; Z87.891 Personal history of nicotine dependence; Z79.899 Other long term (current) drug therapy
CPT/HCPCS: 43235; 36415; 80048; 80053; 80076; 82248; 83735; 85025; 85027; 85610; 86850; 86870; 86900; 86901; 86902; 86905; 86920; 86922; 87040; 93005; 99222; 99285; J0696; J2003; J2354; J2470; J2704; J7120

== ENCOUNTER → 2025-11-11 14:57 | Outpatient (BNV) | payer OTHER, SELFPAY | PROVIDERS: Admitting Provider Internal Medicine; Emergency Provider Emergency Medicine Emergency Medical Services; PCP Family Medicine; Visit Provider Internal Medicine Cardiovascular Disease | DX: R00.1 Bradycardia, unspecified (principal) | CPT/HCPCS: 93010 ==

== ENCOUNTER → 2025-11-11 18:10 | Outpatient (BNV) | payer OTHER, SELFPAY | PROVIDERS: Admitting Provider Internal Medicine; Emergency Provider Emergency Medicine Emergency Medical Services; PCP Family Medicine; Visit Provider Internal Medicine | DX: K92.1 Melena (principal) | CPT/HCPCS: 43235; 99232 ==

== ENCOUNTER → 2025-11-11 18:10 | Outpatient (BNV) | payer OTHER, SELFPAY | PROVIDERS: Admitting Provider Internal Medicine; Emergency Provider Emergency Medicine Emergency Medical Services; PCP Family Medicine; Visit Provider Internal Medicine | DX: D58.0 Hereditary spherocytosis (principal) | CPT/HCPCS: 99223; 99239; 99499 ==